=== PATIENT | female | born 1975 | race Caucasian/White ===

== ENCOUNTER 2017-10-21 09:58 | Inpatient (IN) | payer OTHER ==
[~2017-10-21] VITALS: Ht 162.6 cm; Wt 76.0 kg
[2017-10-21 11:04] LABS: Hematocrit 46.1 % (33.0-51.0); Hemoglobin 15.6 g/dL (11.5-16.0); Mean Corpuscular HGB 29.5 pg (26.0-34.0); Mean Corpuscular HGB Conc 33.8 g/dL (31.5-36.5); Mean Corpuscular Volume 87 fL (80-100); Mean Platelet Volume 9.6 fL (9.1-12.4); Platelet Count 278 K/mm3 (150-400); RDW Standard Deviation 41.7 fL (35.1-46.3); Red Blood Cell Count 5.29 M/mm3 (3.80-5.20); White Blood Cell Count 22.65 K/mm3 (4.00-11.30)
[2017-10-21 11:18] LABS: Anion Gap 9 mmol/L (6-16); Blood Urea Nitrogen 13 mg/dL (8-24); Bun/Creatinine Ratio 17.1 (12.0-20.0); CO2, Blood 23 mmol/L (21-32); Chloride, Blood 100 mmol/L (98-108); Creatinine, Blood 0.76 mg/dL (0.40-1.00); Glomerular Filtration Rate >60 (60-); Glucose, Blood 88 mg/dL (70-99); Potassium, Blood 3.8 mmol/L (3.5-5.5); Sodium, Blood 132 mmol/L (136-145)
[2017-10-21 11:37] LABS: BAND PERCENT MAN 15 % (0-8); BASOPHILS PERCENT MAN 0 % (0-2); EOSINOPHILS PERCENT MAN 0 % (0-6); LYMPHOCYTES % ATYPICAL MANUAL 1 % (0-0); LYMPHOCYTES ABSOLUTE MAN 0.67 K/mm3 (0.84-5.20); LYMPHOCYTES PERCENT MAN 2 % (21-46); MONOCYTES PERCENT MAN 4 % (4-13); NEUTROPHILS ABSOLUTE MAN 21.06 K/mm3 (1.96-9.15); SEG NEUTROPHILS PERCENT MAN 78 % (41-73); TOTAL CELLS COUNTED 100
[2017-10-21] MEDS ORDERED: ASPI81CH PO (13:39)
[2017-10-22 04:51] LABS: BASOPHILS PERCENT AUTO 1 % (0-2); Hematocrit 40.7 % (33.0-51.0); Hemoglobin 13.4 g/dL (11.5-16.0); LYMPHOCYTES ABSOLUTE AUTO 0.93 K/mm3 (0.84-5.20); LYMPHOCYTES PERCENT AUTO 5 % (21-46); MONOCYTES ABSOLUTE AUTO 0.49 K/mm3 (0.16-1.47); MONOCYTES PERCENT AUTO 3 % (4-13); Mean Corpuscular HGB 29.1 pg (26.0-34.0); Mean Corpuscular HGB Conc 32.9 g/dL (31.5-36.5); Mean Corpuscular Volume 89 fL (80-100); Mean Platelet Volume 10.2 fL (9.1-12.4); Platelet Count 247 K/mm3 (150-400); RDW Coefficient Variation 13.2 % (11.7-14.2); RDW Standard Deviation 42.9 fL (35.1-46.3); White Blood Cell Count 18.27 K/mm3 (4.00-11.30)
[2017-10-22 04:52] LABS: EOSINOPHILS ABSOLUTE AUTO 0.13 K/mm3 (0.00-0.68); EOSINOPHILS PERCENT AUTO 1 % (0-6); IMMATURE GRAN ABSOLUTE AUTO 0.53 K/mm3 (0.00-0.10); IMMATURE GRAN PERCENT AUTO 3 % (0-1); NEUTROPHILS ABSOLUTE AUTO 16.09 K/mm3 (1.96-9.15); NEUTROPHILS PERCENT AUTO 88 % (41-73)
[2017-10-22 05:09] LABS: Alanine Aminotransfer (ALT/SGP 41 U/L (12-78); Albumin, Blood 2.3 g/dL (3.4-5.0); Albumin/Globulin Ratio 0.6 (0.8-1.8); Alk Phos 119 U/L (50-136); Anion Gap 8 mmol/L (6-16); Aspartate Aminotrans (AST/SGOT 21 U/L (12-37); Bilirubin, Total 0.6 mg/dL (0.1-1.0); Blood Urea Nitrogen 13 mg/dL (8-24); Bun/Creatinine Ratio 18.1 (12.0-20.0); CO2, Blood 25 mmol/L (21-32); Calcium, Blood 8.4 mg/dL (8.5-10.1); Chloride, Blood 106 mmol/L (98-108); Creatinine, Blood 0.72 mg/dL (0.40-1.00); Globulin, Blood 3.9 g/dL (2.2-4.0); Glomerular Filtration Rate >60 (60-); Glucose, Blood 85 mg/dL (70-99); Sodium, Blood 139 mmol/L (136-145); Total Protein, Blood 6.2 g/dL (6.4-8.2)
[2017-10-23 04:25] LABS: BASOPHILS ABSOLUTE AUTO 0.05 K/mm3 (0.00-0.23); BASOPHILS PERCENT AUTO 0 % (0-2); Hematocrit 35.6 % (33.0-51.0); Hemoglobin 11.8 g/dL (11.5-16.0); LYMPHOCYTES ABSOLUTE AUTO 2.05 K/mm3 (0.84-5.20); LYMPHOCYTES PERCENT AUTO 17 % (21-46); MONOCYTES ABSOLUTE AUTO 0.47 K/mm3 (0.16-1.47); MONOCYTES PERCENT AUTO 4 % (4-13); Mean Corpuscular HGB 29.3 pg (26.0-34.0); Mean Corpuscular HGB Conc 33.1 g/dL (31.5-36.5); Mean Corpuscular Volume 88 fL (80-100); Mean Platelet Volume 10.2 fL (9.1-12.4); Platelet Count 287 K/mm3 (150-400); RDW Coefficient Variation 13.2 % (11.7-14.2); RDW Standard Deviation 43.2 fL (35.1-46.3); Red Blood Cell Count 4.03 M/mm3 (3.80-5.20); White Blood Cell Count 11.88 K/mm3 (4.00-11.30)
[2017-10-23 04:28] LABS: EOSINOPHILS ABSOLUTE AUTO 0.48 K/mm3 (0.00-0.68); EOSINOPHILS PERCENT AUTO 4 % (0-6); IMMATURE GRAN ABSOLUTE AUTO 0.07 K/mm3 (0.00-0.10); IMMATURE GRAN PERCENT AUTO 1 % (0-1); NEUTROPHILS ABSOLUTE AUTO 8.76 K/mm3 (1.96-9.15); NEUTROPHILS PERCENT AUTO 74 % (41-73)
[2017-10-23] MEDS ORDERED: AZIT250 PO (10:50)
== END 2017-10-23 13:25 | disposition home or self-care (01) | DRG 871 ==
LOC: ER 09:58 → MEDS 11:47
PROVIDERS: Emergency Medicine; Internal Medicine
DX: A41.9 Sepsis, unspecified organism (principal); J18.9 Pneumonia, unspecified organism; R65.20 Severe sepsis without septic shock; G89.29 Other chronic pain; M54.9 Dorsalgia, unspecified; E86.0 Dehydration; F17.210 Nicotine dependence, cigarettes, uncomplicated
CPT/HCPCS: 36415; 71046; 80048; 80053; 83605; 85025; 87040; 96372; 96374; 96375; 99285; J0456; J0696; J1650; J1885; J7030; J7050; J7120

== ENCOUNTER 2018-09-19 16:44 | Inpatient (IN) | payer OTHER ==
[~2018-09-19] VITALS: Ht 162.6 cm; Wt 70.3 kg
[~2018-09-19 16:44] MED LIST: ASPI81CH PO; AZIT250 PO
[2018-09-19 17:53] LABS: BASOPHILS ABSOLUTE AUTO 0.08 K/mm3 (0.00-0.23); BASOPHILS PERCENT AUTO 1 % (0-2); EOSINOPHILS ABSOLUTE AUTO 0.15 K/mm3 (0.00-0.68); EOSINOPHILS PERCENT AUTO 2 % (0-6); Hematocrit 44.3 % (33.0-51.0); Hemoglobin 14.5 g/dL (11.5-16.0); IMMATURE GRAN ABSOLUTE AUTO 0.05 K/mm3 (0.00-0.10); IMMATURE GRAN PERCENT AUTO 1 % (0-1); LYMPHOCYTES ABSOLUTE AUTO 1.55 K/mm3 (0.84-5.20); LYMPHOCYTES PERCENT AUTO 16 % (21-46); MONOCYTES ABSOLUTE AUTO 0.71 K/mm3 (0.16-1.47); MONOCYTES PERCENT AUTO 7 % (4-13); Mean Corpuscular HGB 29.8 pg (26.0-34.0); Mean Corpuscular HGB Conc 32.7 g/dL (31.5-36.5); Mean Corpuscular Volume 91 fL (80-100); Mean Platelet Volume 9.5 fL (9.1-12.4); NEUTROPHILS PERCENT AUTO 75 % (41-73); Platelet Count 331 K/mm3 (150-400); RDW Coefficient Variation 13.2 % (11.7-14.2); RDW Standard Deviation 44.6 fL (35.1-46.3); Red Blood Cell Count 4.86 M/mm3 (3.80-5.20); White Blood Cell Count 9.94 K/mm3 (4.00-11.30)
[2018-09-19 18:37] LABS: Anion Gap 5 mmol/L (6-16); Blood Urea Nitrogen 10 mg/dL (8-24); Bun/Creatinine Ratio 18.1 (12.0-20.0); CO2, Blood 27 mmol/L (21-32); Calcium, Blood 8.7 mg/dL (8.5-10.1); Chloride, Blood 105 mmol/L (98-108); Creatinine, Blood 0.55 mg/dL (0.40-1.00); Glomerular Filtration Rate >60 (60-); Glucose, Blood 99 mg/dL (70-99); Potassium, Blood 3.8 mmol/L (3.5-5.5); Sodium, Blood 137 mmol/L (136-145)
[2018-09-19] MEDS ORDERED: LISI20 PO (21:43)
--- NOTE | 2018-09-19 22:12 | NUR ---
PATIENT IS A NEW ADMIT FROM THE ED. ARRIVED VIA W/C AND A SBA TRANSFER TO BED. AXO X 4 ON RA. WAITING ON LAB TO DRAW BLOOD CULTURES BEFORE STARTING IV ABX. PATIENT ORIENTED TO ROOM AND CALL LIGHT SYSTEM. RESTING IN BED AND GIVEN WARM BLANKET.
--- NOTE | 2018-09-19 23:33 | NUR ---
LAB REPORTS SECOND BLOOD CULTURE LAB DRAWN. IV ABX INFUSING FOLLOWED BY LR AT 150mL/HR. PATIENT REPORTS LEFT LEG KNEE AND INSIDE LEG PAIN. IV TORADOL 15 MG WILL BE GIVEN PER EMAR. CALL LIGHT IN REACH. WILL CONTINUE TO MONITOR.
--- NOTE | 2018-09-20 02:42 | NUR ---
IV ABX INFUSING. PATIENT REPORTED REDUCED PAIN AFTER IV TORADOL GIVEN PER EMAR. PATIENT RESTING. CALL LIGHT IN REACH. WILL CONTINUE TO MONITOR.
--- NOTE | 2018-09-20 04:49 | NUR ---
SHIFT SUMMARY PATIENT IS A NEW ADMIT FROM THE ED. PATIENT HAD NO ACUTE CHANGES OBSERVED. AXOX 4 AND INDEPENDENT IN THE ROOM. PATIENT REPORTS NOT TAKING HER LISINOPRIL 20 MG FOR OVER A WEEK. BP WAS 171/96 ON ADMIT AND NOW 152/86. HOSPITALIST DR TYSON NOTIFIED AND ORDERED APRESOLINE IV 10 MG PRN. PIV REMAINS INTACT. IV ABX INFUSED. LR INFUSING AT 150mL/HR. REPORTED LL LEG PAIN AND RECEIVED IV TORADOL 15 MG PER EMAR. SCHOOL BUS DRIVER/TEACHER ASSISTANT REPORTS ST 101. DENIES SOB AND N/V. COOPERATIVE WITH CARE. CALL LIGHT IN REACH. BED IN LOWEST POSITION. WILL CONTINUE TO MONITOR UNTIL DAY SHIFT NURSE ASSUMES CARE.
[2018-09-20 06:35] LABS: U Amphetamine Screen DETECTED; U Barbituate Screen Not Detected; U Benzodiazapine Screen Not Detected; U Buprenorphine Screen Not Detected; U Cannabinoids Screen Not Detected; U Cocaine Screen Not Detected; U Methadone Screen Not Detected; U Methamphetamine Screen DETECTED; U Opiates Screen DETECTED; U Oxycodone Screen Not Detected; U Phencyclidine Screen Not Detected; U Propoxyphene Screen Not Detected
--- NOTE | 2018-09-20 06:51 | NUR ---
URINE SAMPLE SENT TO LAB
--- NOTE | 2018-09-20 12:08 | NUR ---
SHE HAS HAD TORADOL AND LATER TYLENOL FOR PAIN IN HER L LEG. IT IS RED AND SWOLLEN. NO DRAINAGE NOTED. SHE WILL SHOWER TODAY. IVF'S INFUSING. NO OTHER COMPLAINTS.
--- NOTE | 2018-09-20 14:47 | NUR ---
RECEIVED A SECOND DOSE OF TORADOL THIS SHIFT FOR THE PAIN IN HER L LEG.
--- NOTE | 2018-09-20 18:02 | NUR ---
SHE WANTS TO CONTINUE TO NAP BEFORE EATING DINNER. SHE HAS RECEIVED TYLENOL X2 THIS SHIFT, THIS LAST TIME FOR A MILD H/A. SHE WAS PRIVATELY TEARFUL THIS AFTERNOON MISSING HER DAUGHTER AT HOME. TORADOL WAS ALSO GIVEN TWICE TODAY FOR HER L LEG PAIN. HER PSORIASIS CREAM WILL START TONIGHT.
--- NOTE | 2018-09-21 05:04 | NUR ---
SHIFT SUMMARY: PT RESTED IN BED ALL EVENING WITH LEFT LEG ELEVATED ON ONE PILLOW. PT RATED LEFT LEG PAIN 7/10 WITH TORADOL PRN GIVEN PROVIDING ADEQUATE PAIN RELIEF. PT DENIES NAUSEA/VOMITING. PT CALM, COOPERATIVE WITH ORGANIZED THOUGHT PROCESS NOTED. PTS CALL LIGHT AT SIDE, BED LOW POSITION.
[2018-09-21] MEDS ORDERED: Triamcinolone A15 G3 TOP (10:54)
[2018-09-21] MEDS ORDERED: CEPH500 PO (10:55)
--- NOTE | 2018-09-21 11:20 | NUR ---
TYLENOL GIVEN X1 FOR MILD H/A AND PAIN IN HER L LEG. SHE EATS AND DRINKS WELL. SHE VOIDS WELL. NO NEW COMPLAINTS. SHE SAYS SHE FEELS BETTER TODAY AND WANTED TO GO HOME. DISCHARGED TO HOME AT 1114 WITH BELONGINGS AND INSTRUCTIONS.
== END 2018-09-21 11:22 | disposition home or self-care (01) | DRG 603 ==
LOC: ER 16:44 → MEDS 21:22 → ENPENDDIS 09-21 11:16 → MEDS 09-21 11:22
PROVIDERS: Physician Assistant; ADMIT Internal Medicine
DX: L03.116 Cellulitis of left lower limb (principal); R65.10 Systemic inflammatory response syndrome (SIRS) of non-infectious origin without acute organ dysfunction; Z87.01 Personal history of pneumonia (recurrent); F17.210 Nicotine dependence, cigarettes, uncomplicated; Z79.82 Long term (current) use of aspirin; I10 Essential (primary) hypertension; L40.9 Psoriasis, unspecified; M54.9 Dorsalgia, unspecified; G89.29 Other chronic pain
CPT/HCPCS: 36415; 80048; 83605; 85025; 85651; 86141; 87040; 96374; 96375; 99284-25; J0690; J1170; J1650; J1885; J7050; J7120

== ENCOUNTER 2019-06-08 15:54 | Inpatient (IN) | payer OTHER ==
[~2019-06-08] VITALS: Ht 154.9 cm; Wt 74.0 kg
[~2019-06-08 15:54] MED LIST changes: +CEPH500 PO; +LISI20 PO; +Triamcinolone A15 G3 TOP
[2019-06-08 16:38] LABS: BASOPHILS ABSOLUTE AUTO 0.04 K/mm3 (0.00-0.23); BASOPHILS PERCENT AUTO 0 % (0-2); EOSINOPHILS ABSOLUTE AUTO 0.13 K/mm3 (0.00-0.68); EOSINOPHILS PERCENT AUTO 1 % (0-6); Hematocrit 42.2 % (33.0-51.0); Hemoglobin 14.1 g/dL (11.5-16.0); IMMATURE GRAN ABSOLUTE AUTO 0.04 K/mm3 (0.00-0.10); IMMATURE GRAN PERCENT AUTO 0 % (0-1); LYMPHOCYTES ABSOLUTE AUTO 1.62 K/mm3 (0.84-5.20); LYMPHOCYTES PERCENT AUTO 14 % (21-46); MONOCYTES ABSOLUTE AUTO 1.09 K/mm3 (0.16-1.47); MONOCYTES PERCENT AUTO 10 % (4-13); Mean Corpuscular HGB 29.6 pg (26.0-34.0); Mean Corpuscular HGB Conc 33.4 g/dL (31.5-36.5); Mean Corpuscular Volume 89 fL (80-100); Mean Platelet Volume 9.3 fL (9.1-12.4); NEUTROPHILS ABSOLUTE AUTO 8.53 K/mm3 (1.96-9.15); NEUTROPHILS PERCENT AUTO 75 % (41-73); Platelet Count 409 K/mm3 (150-400); RDW Standard Deviation 42.5 fL (35.1-46.3); Red Blood Cell Count 4.77 M/mm3 (3.80-5.20); White Blood Cell Count 11.45 K/mm3 (4.00-11.30)
[2019-06-08 17:09] LABS: Alanine Aminotransfer (ALT/SGP 26 U/L (12-78); Albumin/Globulin Ratio 0.7 (0.8-1.8); Alk Phos 117 U/L (50-136); Anion Gap 7 mmol/L (6-16); Aspartate Aminotrans (AST/SGOT 18 U/L (12-37); Bilirubin, Total 0.2 mg/dL (0.1-1.0); Blood Urea Nitrogen 15 mg/dL (8-24); Bun/Creatinine Ratio 23.9 (12.0-20.0); CO2, Blood 25 mmol/L (21-32); Calcium, Blood 8.8 mg/dL (8.5-10.1); Chloride, Blood 102 mmol/L (98-108); Creatinine, Blood 0.63 mg/dL (0.40-1.00); Globulin, Blood 4.3 g/dL (2.2-4.0); Glomerular Filtration Rate >60 (60-); Glucose, Blood 137 mg/dL (70-99); Sodium, Blood 134 mmol/L (136-145); Total Protein, Blood 7.3 g/dL (6.4-8.2)
[2019-06-09 04:49] LABS: BASOPHILS ABSOLUTE AUTO 0.05 K/mm3 (0.00-0.23); BASOPHILS PERCENT AUTO 1 % (0-2); EOSINOPHILS ABSOLUTE AUTO 0.27 K/mm3 (0.00-0.68); EOSINOPHILS PERCENT AUTO 3 % (0-6); Hematocrit 40.2 % (33.0-51.0); Hemoglobin 13.3 g/dL (11.5-16.0); IMMATURE GRAN ABSOLUTE AUTO 0.03 K/mm3 (0.00-0.10); IMMATURE GRAN PERCENT AUTO 0 % (0-1); LYMPHOCYTES ABSOLUTE AUTO 1.66 K/mm3 (0.84-5.20); LYMPHOCYTES PERCENT AUTO 17 % (21-46); MONOCYTES ABSOLUTE AUTO 0.96 K/mm3 (0.16-1.47); MONOCYTES PERCENT AUTO 10 % (4-13); Mean Corpuscular HGB 29.4 pg (26.0-34.0); Mean Corpuscular HGB Conc 33.1 g/dL (31.5-36.5); Mean Corpuscular Volume 89 fL (80-100); Mean Platelet Volume 9.5 fL (9.1-12.4); NEUTROPHILS ABSOLUTE AUTO 6.59 K/mm3 (1.96-9.15); NEUTROPHILS PERCENT AUTO 69 % (41-73); Platelet Count 384 K/mm3 (150-400); RDW Coefficient Variation 13.1 % (11.7-14.2); RDW Standard Deviation 42.6 fL (35.1-46.3); Red Blood Cell Count 4.53 M/mm3 (3.80-5.20); White Blood Cell Count 9.56 K/mm3 (4.00-11.30)
[2019-06-09 05:10] LABS: Anion Gap 7 mmol/L (6-16); Blood Urea Nitrogen 14 mg/dL (8-24); Bun/Creatinine Ratio 23.8 (12.0-20.0); CO2, Blood 26 mmol/L (21-32); Calcium, Blood 8.3 mg/dL (8.5-10.1); Chloride, Blood 106 mmol/L (98-108); Creatinine, Blood 0.59 mg/dL (0.40-1.00); Glomerular Filtration Rate >60 (60-); Glucose, Blood 100 mg/dL (70-99); Potassium, Blood 3.2 mmol/L (3.5-5.5); Sodium, Blood 139 mmol/L (136-145)
--- NOTE | 2019-06-09 05:15 | NUR ---
CABLE ARMORER OPERATOR SUMMARY PT NEW ADMIT FROM ER. ON DROPLET PRECAUTION. A/O. PT WAS ANXIOUS AND TEARFUL THROUGHOUT MAJORITY OF THE SHIFT OFF AND ON DUE TO PAIN IN LEGS FROM CELLULITIS. TYLENOL AND TRAMADOL GIVEN PER EMAR WHICH DID NOT REDUCE THE PAIN. DILAUDID HELPED THE MOST AND PT SLEPT THROUGHOUT THE NIGHT AFTER THIS WAS GIVEN. S/O STAYED IN THE ROOM WITH PT ENTIRE NIGHT. CALLS APPROPRIATELY.
--- NOTE | 2019-06-09 17:21 | NUR ---
NO ACUTE CHANGES, MEDICATED X2 FOR PAIN AND PARTIAL BED BATH GIVEN TO CLEAN FEET.
[2019-06-10 05:04] LABS: BASOPHILS ABSOLUTE AUTO 0.07 K/mm3 (0.00-0.23); BASOPHILS PERCENT AUTO 1 % (0-2); EOSINOPHILS ABSOLUTE AUTO 0.37 K/mm3 (0.00-0.68); EOSINOPHILS PERCENT AUTO 4 % (0-6); Hematocrit 41.2 % (33.0-51.0); Hemoglobin 13.5 g/dL (11.5-16.0); IMMATURE GRAN ABSOLUTE AUTO 0.03 K/mm3 (0.00-0.10); IMMATURE GRAN PERCENT AUTO 0 % (0-1); LYMPHOCYTES ABSOLUTE AUTO 1.86 K/mm3 (0.84-5.20); LYMPHOCYTES PERCENT AUTO 21 % (21-46); MONOCYTES ABSOLUTE AUTO 0.66 K/mm3 (0.16-1.47); MONOCYTES PERCENT AUTO 8 % (4-13); Mean Corpuscular HGB 29.4 pg (26.0-34.0); Mean Corpuscular HGB Conc 32.8 g/dL (31.5-36.5); Mean Corpuscular Volume 90 fL (80-100); Mean Platelet Volume 9.6 fL (9.1-12.4); NEUTROPHILS ABSOLUTE AUTO 5.72 K/mm3 (1.96-9.15); NEUTROPHILS PERCENT AUTO 66 % (41-73); Platelet Count 418 K/mm3 (150-400); RDW Coefficient Variation 13.2 % (11.7-14.2); RDW Standard Deviation 43.6 fL (35.1-46.3); Red Blood Cell Count 4.59 M/mm3 (3.80-5.20); White Blood Cell Count 8.71 K/mm3 (4.00-11.30)
[2019-06-10 05:28] LABS: Alanine Aminotransfer (ALT/SGP 12 U/L (12-78); Albumin, Blood 2.6 g/dL (3.4-5.0); Albumin/Globulin Ratio 0.6 (0.8-1.8); Alk Phos 106 U/L (50-136); Anion Gap 8 mmol/L (6-16); Aspartate Aminotrans (AST/SGOT 18 U/L (12-37); Bilirubin, Total 0.2 mg/dL (0.1-1.0); Blood Urea Nitrogen 9 mg/dL (8-24); Bun/Creatinine Ratio 16.3 (12.0-20.0); CO2, Blood 23 mmol/L (21-32); Calcium, Blood 8.3 mg/dL (8.5-10.1); Chloride, Blood 108 mmol/L (98-108); Creatinine, Blood 0.55 mg/dL (0.40-1.00); Globulin, Blood 4.1 g/dL (2.2-4.0); Glomerular Filtration Rate >60 (60-); Glucose, Blood 95 mg/dL (70-99); Potassium, Blood 3.8 mmol/L (3.5-5.5); Sodium, Blood 139 mmol/L (136-145); Total Protein, Blood 6.7 g/dL (6.4-8.2)
--- NOTE | 2019-06-10 05:32 | NUR ---
PT SLEPT ALL NIGHT. COMPLAINED OF PAIN A FEW TIMES. MEDICATED PER EMAR FOR PAIN. ANTIBIOTICS GIVEN. PT BLOOD PRESSURE 167/90 EARLY IN THE AM. PT WAS ASKED ABOUT PAIN WHICH WAS A 4/10 AND WAS TOLERABLE. HYDRALAZINE GIVEN PER EMAR WITH PARAMETERS TO GIVE WITH A SYSTOLIC BP ABOVE 150. PT ASYMPTOMATIC. BP RE-ASSESSED AFTER HYDRALAZINE WAS GIVEN. BP CAME DOWN TO 157/89. PT ALSO HAS SCHEDULED METOPROLOL AT 0900. WILL CONTINUE TO MONITOR.
--- NOTE | 2019-06-10 18:19 | NUR ---
SHIFT SUMMARY PT SLEPT A LOT OF THE MORNING AND DIDN'T EAT BREAKFAST DUE TO SLEEPING. PT TOOK A SHOWER THIS AFTERNOON AND SCRUBBED HER FEET IN THE SHOWER, WHICH CAUSED HER TO HAVE A LOT OF PAIN IN HER FEET AND LEGS. PT WAS YELLING AND CRYING. TRAMADOL WAS ADMINISTERED PER EMAR AND PT DID NOT HAVE ANY RELIEF FROM IT. THIS RN TALKED WITH DR. CUEVA ABOUT THE PAIN AND SHE ORDERED TORADOL. TORADOL WAS GIVEN PER EMAR AND PT SLEPT AFTER. PT SLEEPING AT THIS TIME. WILL CONTINUE TO MONITOR FOR COMFORT. CALL LIGHT IN REACH. WILL REPORT TO NOC RN.
--- NOTE | 2019-06-10 20:12 | NUR ---
BP IMPROVED TO 158/97 AFTER RECIEVING HYDRALAZINE IV PRN ON DAY SHIFT AT 1637. NOT TIME YET FOR ANY ADDITIONAL PRN MED FOR SBP >150 BUT WILL REEVALUATE BP FOR NEED THIS SHIFT. NO S/S CARDIAC DISTRESS.
[2019-06-11 00:19] LABS: BASOPHILS ABSOLUTE AUTO 0.07 K/mm3 (0.00-0.23); BASOPHILS PERCENT AUTO 1 % (0-2); EOSINOPHILS ABSOLUTE AUTO 0.47 K/mm3 (0.00-0.68); EOSINOPHILS PERCENT AUTO 7 % (0-6); Hematocrit 42.9 % (33.0-51.0); IMMATURE GRAN ABSOLUTE AUTO 0.03 K/mm3 (0.00-0.10); IMMATURE GRAN PERCENT AUTO 1 % (0-1); LYMPHOCYTES ABSOLUTE AUTO 2.06 K/mm3 (0.84-5.20); LYMPHOCYTES PERCENT AUTO 31 % (21-46); MONOCYTES ABSOLUTE AUTO 0.62 K/mm3 (0.16-1.47); MONOCYTES PERCENT AUTO 9 % (4-13); Mean Corpuscular HGB 29.5 pg (26.0-34.0); Mean Corpuscular HGB Conc 32.6 g/dL (31.5-36.5); Mean Corpuscular Volume 90 fL (80-100); NEUTROPHILS ABSOLUTE AUTO 3.33 K/mm3 (1.96-9.15); NEUTROPHILS PERCENT AUTO 51 % (41-73); Platelet Count 416 K/mm3 (150-400); RDW Coefficient Variation 13.1 % (11.7-14.2); RDW Standard Deviation 43.8 fL (35.1-46.3); Red Blood Cell Count 4.75 M/mm3 (3.80-5.20); White Blood Cell Count 6.58 K/mm3 (4.00-11.30)
[2019-06-11 00:34] LABS: Albumin, Blood 2.7 g/dL (3.4-5.0); Anion Gap 6 mmol/L (6-16); Blood Urea Nitrogen 9 mg/dL (8-24); Bun/Creatinine Ratio 13.4 (12.0-20.0); CO2, Blood 27 mmol/L (21-32); Calcium, Blood 8.8 mg/dL (8.5-10.1); Chloride, Blood 107 mmol/L (98-108); Creatinine, Blood 0.67 mg/dL (0.40-1.00); Glomerular Filtration Rate >60 (60-); Glucose, Blood 112 mg/dL (70-99); Phosphorus, Blood 3.3 mg/dL (2.5-4.9); Potassium, Blood 3.9 mmol/L (3.5-5.5); Sodium, Blood 140 mmol/L (136-145)
[2019-06-11 00:38] LABS: Vancomycin, Trough 6.7 ug/mL (5.0-10.0)
--- NOTE | 2019-06-11 04:50 | NUR ---
PRN IV HYDRALAZINE GIVEN FOR SBP>150 PER PARAMETERS, AWAITING EFFECT.
--- NOTE | 2019-06-11 05:54 | NUR ---
SUMMARY: PT A/O AND SPECIFIES NEEDS BUT SLEPT MAJORITY OF SHIFT AND AWOKE BRIEFLY FOR MEDS AND TO USE TOILET INDEPENDENTLY. SHE STATES BLE LEG PAIN WAS BETTER THIS SHIFT BUT STILL REQUIRED TRAMADOL AND IV TORADOL PRN FOR TOLERABLE CONTROL. DERMATOLOGY CX NEEDS CALLED TUESDAY FOR LICHEN PLANUS W/INFECTION TO BLE'S. THEY REMAIN WARM, PINK, SWOLLEN AND W/SCABS AND OPEN SORES T/O. IV ABX RECEIVED. HER BP REMAINS ELEVATED BUT BETTER THEN PREVIOUS SHIFTS. SHE REQUIRED HYDRALAZINE IV PRN X1 THIS AM FOR BP 171/92, NOW IMPROVED TO 141/79. NO ACUTE CHANGES, VSS/AFEBRILE. BROTHER STAYS THE NIGHT. WCAHSAN AND REPORT TO DAY RN.
[2019-06-11] MEDS ORDERED: Vsl#3 Capsule1 EACH PO (15:13)
[2019-06-11] MEDS ORDERED: METO25ER PO (15:13)
[2019-06-11] MEDS ORDERED: TRAM50 PO (15:13)
[2019-06-11] MEDS ORDERED: Augmentin 875-1 EACH PO (15:14)
--- NOTE | 2019-06-11 18:18 | NUR ---
REVIEW D'C INSTRUCTIONS. AWARE TO DIRECTOR AUTO RX'S AT [facility]. AWARE HAS APPT W/PCP AND PCP HAS NEW ADDRESS. AWARE DERMATOLOGY WILL CALL HER WITH APPT. GIVEN EXTRA 4 X4 THAT WERE IN ROOM AND SHURCLENS. AWAITING W/C TO RIDE.
== END 2019-06-11 18:28 | disposition home or self-care (01) | DRG 603 ==
LOC: ER 15:54 → MEDS 19:35
PROVIDERS: Internal Medicine; Physician Assistant; ADMIT Family Medicine
DX: L03.115 Cellulitis of right lower limb (principal); E87.1 Hypo-osmolality and hyponatremia; L03.116 Cellulitis of left lower limb; E87.6 Hypokalemia; R73.9 Hyperglycemia, unspecified; I10 Essential (primary) hypertension; B95.61 Methicillin susceptible Staphylococcus aureus infection as the cause of diseases classified elsewhere; B95.0 Streptococcus, group A, as the cause of diseases classified elsewhere; F17.210 Nicotine dependence, cigarettes, uncomplicated; D47.3 Essential (hemorrhagic) thrombocythemia; F15.10 Other stimulant abuse, uncomplicated; L43.0 Hypertrophic lichen planus
CPT/HCPCS: 36415; 80048; 80053; 80069; 80202; 83036; 85025; 87070; 87075; 87077; 87147; 87186; 87205; 96374; 99284-25; A9270; J0360; J0690; J1170; J1650; J1885; J3370; J7050

== ENCOUNTER 2020-02-19 18:16 | Emergency (ER) | payer OTHER ==
[~2020-02-19] VITALS: Ht 162.6 cm; Wt 77.1 kg
[~2020-02-19 18:16] MED LIST changes: +Augmentin 875-1 EACH PO; +METO25ER PO; +TRAM50 PO; +Vsl#3 Capsule1 EACH PO
[2020-02-19 19:44] LABS: Source, Urine Voided
[2020-02-19 19:49] LABS: BASOPHILS ABSOLUTE AUTO 0.05 K/mm3 (0.00-0.23); BASOPHILS PERCENT AUTO 0 % (0-2); EOSINOPHILS ABSOLUTE AUTO 0.25 K/mm3 (0.00-0.68); EOSINOPHILS PERCENT AUTO 2 % (0-6); Hematocrit 45.9 % (33.0-51.0); Hemoglobin 15.3 g/dL (11.5-16.0); IMMATURE GRAN ABSOLUTE AUTO 0.08 K/mm3 (0.00-0.10); IMMATURE GRAN PERCENT AUTO 1 % (0-1); LYMPHOCYTES PERCENT AUTO 8 % (21-46); MONOCYTES ABSOLUTE AUTO 1.11 K/mm3 (0.16-1.47); MONOCYTES PERCENT AUTO 8 % (4-13); Mean Corpuscular HGB 28.6 pg (26.0-34.0); Mean Corpuscular HGB Conc 33.3 g/dL (31.5-36.5); Mean Corpuscular Volume 86 fL (80-100); Mean Platelet Volume 10.3 fL (9.1-12.4); NEUTROPHILS ABSOLUTE AUTO 11.84 K/mm3 (1.96-9.15); NEUTROPHILS PERCENT AUTO 82 % (41-73); Platelet Count 281 K/mm3 (150-400); RDW Coefficient Variation 13.2 % (11.7-14.2); RDW Standard Deviation 41.1 fL (35.1-46.3); Red Blood Cell Count 5.35 M/mm3 (3.80-5.20); White Blood Cell Count 14.53 K/mm3 (4.00-11.30)
[2020-02-19 19:50] LABS: Bilirubin, Urine Neg (Neg); Blood, Urine 4+ (Neg); Glucose Qualitative, Urine Neg (Neg); Ketones, Urine Neg (Neg); Leukocyte Esterase, Urine 2+ (Neg); Nitrite, Urine Neg (Neg); Protein, Urine 2+ (Neg); Specific Gravity, Urine 1.015 (1.003-1.022); Urobilinogen, Urine 2+ (Normal)
[2020-02-19 20:01] LABS: Appearance, Urine Clear (Clear); Color, Urine Yellow (P-Yellow)
[2020-02-19 20:02] LABS: Bacteria Mod /hpf; Hyaline Casts 0-2 /lpf (0-2); Red Blood Cells, Urine 0-2 /hpf (0-2); Squamous Epithelial Cells Few /hpf (Few); Trichomonas Few /hpf
[2020-02-19 20:29] LABS: Anion Gap 11 mmol/L (6-16); Beta HCG, Quantitative, Serum <1 mIU/mL (0-3); Blood Urea Nitrogen 19 mg/dL (8-24); Bun/Creatinine Ratio 23.3 (12.0-20.0); CO2, Blood 22 mmol/L (21-32); Calcium, Blood 8.5 mg/dL (8.5-10.1); Chloride, Blood 100 mmol/L (98-108); Creatinine, Blood 0.81 mg/dL (0.40-1.00); Glomerular Filtration Rate >60 (60-); Glucose, Blood 109 mg/dL (70-99); Potassium, Blood 3.4 mmol/L (3.5-5.5); Sodium, Blood 133 mmol/L (136-145)
[2020-02-19] MEDS ORDERED: HYDR1TAB94 PO (21:39)
[2020-02-19] MEDS ORDERED: ONDA4ODT SL (21:39)
[2020-02-19] MEDS ORDERED: CEFD300 PO (21:39)
== END 2020-02-19 22:07 | disposition home or self-care (01) ==
LOC: ER 18:16
PROVIDERS: Emergency Medicine
DX: R10.9 Unspecified abdominal pain (principal); I10 Essential (primary) hypertension; Z79.899 Other long term (current) drug therapy; F17.210 Nicotine dependence, cigarettes, uncomplicated
CPT/HCPCS: 36415; 80048; 81001; 84702; 85025; 87086; 96365; 96375; 99284-25; J0696; J1885

== ENCOUNTER 2020-03-01 10:41 | Inpatient (IN) | payer OTHER ==
[~2020-03-01] VITALS: Ht 162.6 cm; Wt 79.5 kg
[~2020-03-01 10:41] MED LIST changes: +CEFD300 PO; +HYDR1TAB94 PO; +ONDA4ODT SL
[2020-03-01 11:35] LABS: BASOPHILS PERCENT AUTO 1 % (0-2); EOSINOPHILS ABSOLUTE AUTO 0.22 K/mm3 (0.00-0.68); EOSINOPHILS PERCENT AUTO 1 % (0-6); Hematocrit 42.2 % (33.0-51.0); Hemoglobin 13.4 g/dL (11.5-16.0); IMMATURE GRAN ABSOLUTE AUTO 0.09 K/mm3 (0.00-0.10); IMMATURE GRAN PERCENT AUTO 1 % (0-1); LYMPHOCYTES ABSOLUTE AUTO 1.72 K/mm3 (0.84-5.20); LYMPHOCYTES PERCENT AUTO 11 % (21-46); MONOCYTES ABSOLUTE AUTO 0.91 K/mm3 (0.16-1.47); MONOCYTES PERCENT AUTO 6 % (4-13); Mean Corpuscular HGB 28.2 pg (26.0-34.0); Mean Corpuscular HGB Conc 31.8 g/dL (31.5-36.5); Mean Corpuscular Volume 89 fL (80-100); Mean Platelet Volume 9.2 fL (9.1-12.4); NEUTROPHILS ABSOLUTE AUTO 13.27 K/mm3 (1.96-9.15); NEUTROPHILS PERCENT AUTO 81 % (41-73); Platelet Count 673 K/mm3 (150-400); RDW Coefficient Variation 13.6 % (11.7-14.2); RDW Standard Deviation 44.5 fL (35.1-46.3); Red Blood Cell Count 4.75 M/mm3 (3.80-5.20); White Blood Cell Count 16.31 K/mm3 (4.00-11.30)
[2020-03-01 11:53] LABS: Alanine Aminotransfer (ALT/SGP 47 U/L (12-78); Albumin, Blood 2.5 g/dL (3.4-5.0); Albumin/Globulin Ratio 0.5 (0.8-1.8); Alk Phos 176 U/L (50-136); Anion Gap 9 mmol/L (6-16); Aspartate Aminotrans (AST/SGOT 31 U/L (12-37); Bilirubin, Total 0.3 mg/dL (0.1-1.0); Blood Urea Nitrogen 7 mg/dL (8-24); Bun/Creatinine Ratio 15.1 (12.0-20.0); CO2, Blood 22 mmol/L (21-32); Calcium, Blood 8.9 mg/dL (8.5-10.1); Chloride, Blood 103 mmol/L (98-108); Creatinine, Blood 0.47 mg/dL (0.40-1.00); Globulin, Blood 5.3 g/dL (2.2-4.0); Glomerular Filtration Rate >60 (60-); Glucose, Blood 139 mg/dL (70-99); Potassium, Blood 3.4 mmol/L (3.5-5.5); Sodium, Blood 134 mmol/L (136-145); Total Protein, Blood 7.8 g/dL (6.4-8.2)
[2020-03-01 12:21] LABS: Source, Urine Clean Catch
[2020-03-01 12:24] LABS: Appearance, Urine Hazy (Clear); Bilirubin, Urine Neg (Neg); Blood, Urine 1+ (Neg); Color, Urine Yellow (P-Yellow); Glucose Qualitative, Urine Neg (Neg); Ketones, Urine 1+ (Neg); Leukocyte Esterase, Urine 2+ (Neg); Nitrite, Urine Neg (Neg); Protein, Urine 2+ (Neg); Urobilinogen, Urine 2+ (Normal)
[2020-03-01 12:44] LABS: Bacteria Mod /hpf; Red Blood Cells, Urine 0-2 /hpf (0-2); Squamous Epithelial Cells Mod /hpf (Few)
[2020-03-01 12:45] LABS: Calcium Oxalate Crystals Many /hpf; Mucus Light (0-Heavy); Trichomonas Many /hpf
[2020-03-01 17:22] LABS: International Normalized Ratio 1.07; Prothrombin Time Results 11.4 Sec (9.7-11.5)
--- NOTE | 2020-03-01 17:50 | NUR ---
pt arrived to unit via stretcher, transferred herself to bed, a/o x 4, vss, pleasant/cooperative, pt's father in room with pt, pt voided 650 ml dark yellow urine, tolerated po intake, will remain NPO after midnight
[2020-03-02 04:01] LABS: BASOPHILS ABSOLUTE AUTO 0.07 K/mm3 (0.00-0.23); BASOPHILS PERCENT AUTO 1 % (0-2); EOSINOPHILS ABSOLUTE AUTO 0.17 K/mm3 (0.00-0.68); EOSINOPHILS PERCENT AUTO 1 % (0-6); Hematocrit 37.8 % (33.0-51.0); IMMATURE GRAN ABSOLUTE AUTO 0.09 K/mm3 (0.00-0.10); IMMATURE GRAN PERCENT AUTO 1 % (0-1); LYMPHOCYTES PERCENT AUTO 19 % (21-46); MONOCYTES ABSOLUTE AUTO 1.04 K/mm3 (0.16-1.47); MONOCYTES PERCENT AUTO 8 % (4-13); Mean Corpuscular HGB 27.9 pg (26.0-34.0); Mean Corpuscular HGB Conc 31.7 g/dL (31.5-36.5); Mean Corpuscular Volume 88 fL (80-100); Mean Platelet Volume 9.1 fL (9.1-12.4); NEUTROPHILS ABSOLUTE AUTO 9.06 K/mm3 (1.96-9.15); NEUTROPHILS PERCENT AUTO 71 % (41-73); Platelet Count 661 K/mm3 (150-400); RDW Coefficient Variation 13.8 % (11.7-14.2); RDW Standard Deviation 44.3 fL (35.1-46.3); White Blood Cell Count 12.83 K/mm3 (4.00-11.30)
[2020-03-02 04:30] LABS: Anion Gap 4 mmol/L (6-16); Blood Urea Nitrogen 5 mg/dL (8-24); Bun/Creatinine Ratio 9.3 (12.0-20.0); CO2, Blood 29 mmol/L (21-32); Calcium, Blood 8.4 mg/dL (8.5-10.1); Chloride, Blood 103 mmol/L (98-108); Creatinine, Blood 0.54 mg/dL (0.40-1.00); Glomerular Filtration Rate >60 (60-); Glucose, Blood 99 mg/dL (70-99); Potassium, Blood 3.8 mmol/L (3.5-5.5); Sodium, Blood 136 mmol/L (136-145)
--- NOTE | 2020-03-02 13:02 | NUR ---
PT TO PROCEDURE AT THIS TIME.
--- NOTE | 2020-03-02 14:51 | NUR ---
S/P PROCEDURE S/P URECIL DRAIN PLACEMENT TO RLQ. DRESSING CDI AND PURULENT DRAINAGE PRESENT IN BAG. PT REPORTS "PAIN FEELS BETTER NOW". PT ABLE TO STAND AND GET INTO BED FROM [facility] WITH MIN ASSIST. OFFERED REG DIET. DAD AT BEDSIDE FOR SUPPORT. CALL LIGHT WITHIN REACH.
--- NOTE | 2020-03-02 16:48 | NUR ---
SHIFT SUMMARY CT GUIDED DRAIN PLACEMENT TODAY TO RLQ. SCANT PURULENT DRAINAGE NOTED IN BAG. 1 NORCO + 0.5MG IV DILAUDID FOR PAIN PRN. GLORIA REG DIET. 1 MIN ASSIST TO BRP. IV ABX PER ORDERS. PT OCCASSIONALLY HAS IRRITABLE OUTBURSTS TOWARDS FATHER IN ROOM. FATHER COOPERATIVE WITH LEAVING PRN. PT USES CALL LIGHT APPROPRIATELY.
--- NOTE | 2020-03-03 09:07 | NUR ---
CAP AND STUD MACHINE OPERATOR REPORTS PT IS GETTING ANXIOUS IN ROOM, WANTS TO GO OUTSIDE TO SMOKE, PT WAS NOTED YELLING AT HER FATHER IN THE ROOM, WENT OUTSIDE IN A W/C TO SMOKE WITH HER FATHER, UNABLE TO DO PT'S ASSESSMENT AT THIS TIME.
--- NOTE | 2020-03-03 19:22 | NUR ---
MEDICATED FOR PAIN X2 TODAY, GOES OUT FREQUENTLY TO SMOKE, DENIES ANY NAUSEA, DRAIN INTACT, REFUSED SHOWER TODAY, TOLERATING DIET WELL, NO ACUTE CHANGES THIS SHIFT.
[2020-03-04 05:12] LABS: BASOPHILS ABSOLUTE AUTO 0.07 K/mm3 (0.00-0.23); BASOPHILS PERCENT AUTO 1 % (0-2); EOSINOPHILS ABSOLUTE AUTO 0.32 K/mm3 (0.00-0.68); EOSINOPHILS PERCENT AUTO 4 % (0-6); Hematocrit 39.8 % (33.0-51.0); Hemoglobin 12.6 g/dL (11.5-16.0); IMMATURE GRAN ABSOLUTE AUTO 0.08 K/mm3 (0.00-0.10); IMMATURE GRAN PERCENT AUTO 1 % (0-1); LYMPHOCYTES ABSOLUTE AUTO 2.37 K/mm3 (0.84-5.20); LYMPHOCYTES PERCENT AUTO 33 % (21-46); MONOCYTES ABSOLUTE AUTO 0.52 K/mm3 (0.16-1.47); MONOCYTES PERCENT AUTO 7 % (4-13); Mean Corpuscular HGB 28.3 pg (26.0-34.0); Mean Corpuscular HGB Conc 31.7 g/dL (31.5-36.5); Mean Corpuscular Volume 89 fL (80-100); Mean Platelet Volume 9.1 fL (9.1-12.4); NEUTROPHILS ABSOLUTE AUTO 3.89 K/mm3 (1.96-9.15); NEUTROPHILS PERCENT AUTO 54 % (41-73); Platelet Count 687 K/mm3 (150-400); RDW Coefficient Variation 13.6 % (11.7-14.2); RDW Standard Deviation 44.5 fL (35.1-46.3); Red Blood Cell Count 4.46 M/mm3 (3.80-5.20); White Blood Cell Count 7.25 K/mm3 (4.00-11.30)
--- NOTE | 2020-03-04 06:51 | NUR ---
SHIFT SUMMARY HAS RESTED OFF AND ON THIS SHFIT. PAIN MEDS ADMINSTERED X2 THIS SHIFT. RLQ PIGTAIL DRAIN EMPTIED, 120ML CHICAS/GREEN PURULENT DRAINAGE CLEARED FROM BAG. DENIES PAIN, DISCOMFORT, OR FURTHER NEEDS AT THIS TIME. SAFETY MEASURES IN PLACE. WILL CONTINUE TO MONITOR ANF GIVE HAND OFF TO ONCOMING SHIFT USING SBAR DURINIG BEDSIDE REPORT.
--- NOTE | 2020-03-04 17:23 | NUR ---
TOLERATING REGULAR DIET WELL, GOES OUTSIDE TO SMOKE, EMPTIED 20CC OR PURULENT DRAINAGE FROM UROSIL DRAIN, POSSIBLE DC HOME TOMORROW PER DR. MUÑOZ, NO C/O PAIN TODAY, NO ACUTE CHANGES THIS SHIFT.
--- NOTE | 2020-03-05 06:24 | NUR ---
SHIFT SUMMARY HAS RESTED WELL, PAIN MEDS ADMINSTERED X1 THIS SHIFT. RLQ PIGTAIL DRAIN EMPTIED, 10ML CHICAS/PURULENT DRAINAGE CLEARED FROM BAG. DENIES PAIN, DISCOMFORT, OR FURTHER NEEDS AT THIS TIME. SAFETY MEASURES IN PLACE. WILL CONTINUE TO MONITOR AND GIVE HAND OFF TO ONCOMING SHIFT USING SBAR DURINIG BEDSIDE REPORT.
[2020-03-05] MEDS ORDERED: AMOCLA500 PO (08:09)
== END 2020-03-05 08:30 | disposition home or self-care (01) | DRG 871 ==
LOC: ER 10:41 → MEDS 16:51 → SURS 17:17
PROVIDERS: Emergency Medicine; ADMIT Surgery
PROC: 0W9G30Z Drainage of Peritoneal Cavity with Drainage Device, Percutaneous Approach (ICD-10-PCS; principal; 2020-03-01)
DX: A41.9 Sepsis, unspecified organism (principal); K35.33 Acute appendicitis with perforation, localized peritonitis, and gangrene, with abscess; Z20.828 Contact with and (suspected) exposure to other viral communicable diseases; I10 Essential (primary) hypertension; Z87.01 Personal history of pneumonia (recurrent); F17.210 Nicotine dependence, cigarettes, uncomplicated
CPT/HCPCS: 36415; 49405; 74178; 80048; 80053; 81001; 85025; 85610; 85730; 87070; 87077; 87086; 87186; 87205; 96361; 96365-59; 96367; 96375; 99285-25; A9270-GY; J0295; J1170; J2060; J2405; J7120; Q9967

== ENCOUNTER 2020-03-18 16:04 | Emergency (ER) | payer OTHER ==
[~2020-03-18] VITALS: Ht 162.6 cm; Wt 79.4 kg
[~2020-03-18 16:04] MED LIST changes: +AMOCLA500 PO
[2020-03-18 16:35] LABS: BASOPHILS ABSOLUTE AUTO 0.14 K/mm3 (0.00-0.23); BASOPHILS PERCENT AUTO 1 % (0-2); EOSINOPHILS ABSOLUTE AUTO 1.63 K/mm3 (0.00-0.68); EOSINOPHILS PERCENT AUTO 10 % (0-6); Hematocrit 40.5 % (33.0-51.0); Hemoglobin 12.8 g/dL (11.5-16.0); IMMATURE GRAN ABSOLUTE AUTO 0.13 K/mm3 (0.00-0.10); IMMATURE GRAN PERCENT AUTO 1 % (0-1); LYMPHOCYTES ABSOLUTE AUTO 2.75 K/mm3 (0.84-5.20); LYMPHOCYTES PERCENT AUTO 17 % (21-46); MONOCYTES ABSOLUTE AUTO 1.02 K/mm3 (0.16-1.47); MONOCYTES PERCENT AUTO 6 % (4-13); Mean Corpuscular HGB 27.4 pg (26.0-34.0); Mean Corpuscular HGB Conc 31.6 g/dL (31.5-36.5); Mean Corpuscular Volume 87 fL (80-100); Mean Platelet Volume 9.3 fL (9.1-12.4); NEUTROPHILS ABSOLUTE AUTO 10.33 K/mm3 (1.96-9.15); NEUTROPHILS PERCENT AUTO 65 % (41-73); Platelet Count 629 K/mm3 (150-400); RDW Coefficient Variation 13.6 % (11.7-14.2); RDW Standard Deviation 42.8 fL (35.1-46.3); Red Blood Cell Count 4.68 M/mm3 (3.80-5.20)
[2020-03-18 16:57] LABS: Alanine Aminotransfer (ALT/SGP 54 U/L (12-78); Albumin, Blood 3.1 g/dL (3.4-5.0); Albumin/Globulin Ratio 0.6 (0.8-1.8); Alk Phos 186 U/L (50-136); Anion Gap 8 mmol/L (6-16); Aspartate Aminotrans (AST/SGOT 28 U/L (12-37); Bilirubin, Total 0.3 mg/dL (0.1-1.0); Blood Urea Nitrogen 11 mg/dL (8-24); CO2, Blood 25 mmol/L (21-32); Calcium, Blood 9.6 mg/dL (8.5-10.1); Chloride, Blood 100 mmol/L (98-108); Creatinine, Blood 0.69 mg/dL (0.40-1.00); Globulin, Blood 5.1 g/dL (2.2-4.0); Glomerular Filtration Rate >60 (60-); Glucose, Blood 120 mg/dL (70-99); Potassium, Blood 3.7 mmol/L (3.5-5.5); Sodium, Blood 133 mmol/L (136-145); Total Protein, Blood 8.2 g/dL (6.4-8.2)
== END 2020-03-18 18:47 | disposition left against medical advice (07) ==
LOC: ER 16:04
PROVIDERS: Physician Assistant
DX: R10.31 Right lower quadrant pain (principal); Z53.21 Procedure and treatment not carried out due to patient leaving prior to being seen by health care provider
CPT/HCPCS: 36415; 80053; 85025; 99283

== ENCOUNTER 2020-03-27 15:46 | Inpatient (IN) | payer OTHER ==
[~2020-03-27] VITALS: Ht 162.6 cm; Wt 77.5 kg
[~2020-03-27 15:46] MED LIST changes: -METO25ER PO
[2020-03-27 16:39] LABS: BASOPHILS ABSOLUTE AUTO 0.08 K/mm3 (0.00-0.23); BASOPHILS PERCENT AUTO 1 % (0-2); EOSINOPHILS ABSOLUTE AUTO 0.38 K/mm3 (0.00-0.68); EOSINOPHILS PERCENT AUTO 3 % (0-6); Hematocrit 38.2 % (33.0-51.0); IMMATURE GRAN ABSOLUTE AUTO 0.06 K/mm3 (0.00-0.10); IMMATURE GRAN PERCENT AUTO 1 % (0-1); LYMPHOCYTES ABSOLUTE AUTO 2.19 K/mm3 (0.84-5.20); LYMPHOCYTES PERCENT AUTO 17 % (21-46); MONOCYTES ABSOLUTE AUTO 0.74 K/mm3 (0.16-1.47); MONOCYTES PERCENT AUTO 6 % (4-13); Mean Corpuscular HGB 27.5 pg (26.0-34.0); Mean Corpuscular HGB Conc 31.4 g/dL (31.5-36.5); Mean Corpuscular Volume 88 fL (80-100); Mean Platelet Volume 8.9 fL (9.1-12.4); NEUTROPHILS ABSOLUTE AUTO 9.77 K/mm3 (1.96-9.15); NEUTROPHILS PERCENT AUTO 74 % (41-73); Platelet Count 523 K/mm3 (150-400); RDW Coefficient Variation 13.6 % (11.7-14.2); RDW Standard Deviation 43.4 fL (35.1-46.3); Red Blood Cell Count 4.36 M/mm3 (3.80-5.20); White Blood Cell Count 13.22 K/mm3 (4.00-11.30)
[2020-03-27 16:59] LABS: Alanine Aminotransfer (ALT/SGP 16 U/L (12-78); Albumin, Blood 2.7 g/dL (3.4-5.0); Albumin/Globulin Ratio 0.6 (0.8-1.8); Alk Phos 114 U/L (50-136); Anion Gap 9 mmol/L (6-16); Aspartate Aminotrans (AST/SGOT 14 U/L (12-37); Bilirubin, Total 0.3 mg/dL (0.1-1.0); Blood Urea Nitrogen 6 mg/dL (8-24); Bun/Creatinine Ratio 8.5 (12.0-20.0); CO2, Blood 25 mmol/L (21-32); Calcium, Blood 9.1 mg/dL (8.5-10.1); Chloride, Blood 102 mmol/L (98-108); Creatinine, Blood 0.71 mg/dL (0.40-1.00); Globulin, Blood 4.7 g/dL (2.2-4.0); Glomerular Filtration Rate >60 (60-); Glucose, Blood 98 mg/dL (70-99); Potassium, Blood 3.1 mmol/L (3.5-5.5); Sodium, Blood 136 mmol/L (136-145); Total Protein, Blood 7.4 g/dL (6.4-8.2)
[2020-03-27] MEDS ORDERED: METO25ER PO (17:10)
--- NOTE | 2020-03-27 20:52 | NUR ---
PT ARRIVED TO ROOM A/O. VSS. LUNGS CLEAR T/O. PT DENIES PAIN/N/V. RLQ ABD REDDENED W/INCISION DRNG MOD-LARGE AMT PURULANT DRNG. PT DENIES INC PAIN W/PALP. PLAN TO CLEAN SITE AND REPLACE DRESSING. SURGEON AWARE OF PT ARRIVAL. PLAN TO CONT ABX PER ORDERS.
--- NOTE | 2020-03-28 05:44 | NUR ---
PT REMAINED AFEBRILE, OTHER VSS. WOUND CONT TO DRAIN LARGE AMT PURULANT DRNG, NO CHANGES IN REDNESS AROUND SITE. PT DENIED N/V. PT MED FOR PAIN X1 W/REP RELIEF. PT INDEP IN ROOM, IS USING CALL LIGHT FOR ASSISTANCE, WILL CONT TO MONITOR UNTIL REP GIVEN TO ONCOMING RN.
--- NOTE | 2020-03-28 14:36 | NUR ---
1330 TO RADIOLOGY PER CART
--- NOTE | 2020-03-28 14:47 | NUR ---
1435 return from radiology malecot drain in place to rlq . less than 10 ml of milky pink drainage present. gauze dressing dry and intact. pt tearful state "am I going to , i dont want to ". pt calmed after reassusrance offered. pt requests coffee and food
--- NOTE | 2020-03-28 17:48 | NUR ---
SUMMARY PT RESTING QUIETLY WITH EYES CLOSED AFTER RETURN FROM DRAIN PLACEMENT AND MEDICATED FOR PAIN. PT TEARFUL AND ANXIOUS AT TIMES AND ASKING IF SHE IS GOING TO , PT CALMS WHEN REASSURED ABOUT CURRENT MEDICAL CONDITION. RLQ DRAIN WITH 30 ML PURULENT CHICAS WITH PINK TINGED THICK FRAINAGE
[2020-03-29 05:01] LABS: BASOPHILS ABSOLUTE AUTO 0.08 K/mm3 (0.00-0.23); BASOPHILS PERCENT AUTO 1 % (0-2); EOSINOPHILS ABSOLUTE AUTO 0.42 K/mm3 (0.00-0.68); EOSINOPHILS PERCENT AUTO 6 % (0-6); Hematocrit 35.1 % (33.0-51.0); Hemoglobin 11.4 g/dL (11.5-16.0); IMMATURE GRAN ABSOLUTE AUTO 0.04 K/mm3 (0.00-0.10); IMMATURE GRAN PERCENT AUTO 1 % (0-1); LYMPHOCYTES PERCENT AUTO 23 % (21-46); MONOCYTES PERCENT AUTO 6 % (4-13); Mean Corpuscular HGB 27.9 pg (26.0-34.0); Mean Corpuscular HGB Conc 32.5 g/dL (31.5-36.5); Mean Corpuscular Volume 86 fL (80-100); Mean Platelet Volume 8.8 fL (9.1-12.4); NEUTROPHILS ABSOLUTE AUTO 4.62 K/mm3 (1.96-9.15); NEUTROPHILS PERCENT AUTO 64 % (41-73); Platelet Count 529 K/mm3 (150-400); RDW Coefficient Variation 13.7 % (11.7-14.2); RDW Standard Deviation 43.3 fL (35.1-46.3); Red Blood Cell Count 4.08 M/mm3 (3.80-5.20); White Blood Cell Count 7.26 K/mm3 (4.00-11.30)
--- NOTE | 2020-03-29 05:24 | NUR ---
PATIENT WAS ABLE TO SLEEP FOR MOST OF THE NIGHT. SHE DID ASK FOR PAIN MEDICATION THIS AM. THE MALICOT DRAIN IS PUTTING OUT PURULENT PINK FLUID. SECRUING DEVICE IN PLACE, NO LEAKAGE FROM THE DRAIN INCERTION SITE. NO ACUTE CHANGES. CALL LIGHT WITH IN REACH.
--- NOTE | 2020-03-29 17:04 | NUR ---
SHIFT SUMMARY PT EATING AND DRINKING, VOIDING. PT BEEN ASSISTED WITH ADL'S PRN. PT BEEN RESTING QUITLY WHEN NOT DISTURBED MOST OF DAY. PT ENC TO AMBULATE TODAY. PT BEEN ON PHONE AT TIMES. PT HAD SHOWER TODAY.
--- NOTE | 2020-03-30 04:57 | NUR ---
PATIENT WAKES ALERT AND ORIENTED.INDEPENDENT IN THE ROOM. MALICOT DRAIN WITH 60CC OF CREAMY PINK COLORED FLUID. RECIEVING PAIN MEDICATION SEVERAL TIMES THROUGHOUT THE SHIFT. CALL LIGHT IN REACH.
[2020-03-30] MEDS ORDERED: AMOCLA500 PO (17:06)
[2020-03-30] MEDS ORDERED: HYDR1TAB94 PO (17:06)
--- NOTE | 2020-03-30 17:16 | NUR ---
SHIFT SUMMARY: PATIENT HAS BEEN SLEEPING MAJORITY OF THE SHIFT, BUT EASILY AROUSABLE. SHE HAD A VISITOR COME IN TO TAKE HER OUTSIDE BY WHEELCHAIR. WHEN HER VISITOR CAME SHE HAS BEEN MORE AWAKE. SHE IS ALERT AND ORIENTED X4. SHE IS INDEPENDANT IN THE ROOM. URACIL DRAIN HAD A SCANT AMOUNT IN BAG DURING SHIFT. THE FLUID HAS BEEN A DARK RED COLOR. PATIENT HAS HAD PAIN MEDICATION TWICE DURING SHIFT. SHE HAS BEEN ON AND OFF TEARFUL STATING THAT SHE "WANTS TO GO HOME". DR. SUNSHINE CAME BY SHORTLY AFTER THIS STATEMENT, AND HE UPDATED HER ON HER STATUS. CALL LIGHT IS WITHIN REACH. HER VITALS HAVE BEEN STABLE THROUGHOUT SHIFT. WILL CONTINUE TO MONITOR.
--- NOTE | 2020-03-30 17:22 | NUR ---
DISCHARGE NOTE: PATIENT EDUCATED ON AND RECIEVED PRINTED DISCHARGE INSTRUCTIONS. VERBALIZED UNDERSTANDING. THIS NURSE DEMONSTRATED PROPER MANAGEMENT FOR HOME. HARD RX FOR NORCO PLUS AUGMENTEN GIVEN TO PATIENT. IV D/C'D. PATIENT GATHERING ALL PERSONAL BELONGINGS. PATIENT IS WAITING FOR A RIDE HOME.
== END 2020-03-30 17:30 | disposition home or self-care (01) | DRG 373 ==
LOC: ER 15:46 → SURS 20:14
PROVIDERS: Physician Assistant; Surgery; ADMIT Surgery
PROC: 0W9H30Z Drainage of Retroperitoneum with Drainage Device, Percutaneous Approach (ICD-10-PCS; principal; 2020-03-28)
DX: K35.33 Acute appendicitis with perforation, localized peritonitis, and gangrene, with abscess (principal); I10 Essential (primary) hypertension; F17.210 Nicotine dependence, cigarettes, uncomplicated; L28.0 Lichen simplex chronicus; Z79.899 Other long term (current) drug therapy
CPT/HCPCS: 36415; 49405; 74177; 80053; 83605; 85025; 87040; 87070; 87075; 87076; 87077; 87185; 87186; 87205; 93005; 93010; 96361-59; 96365-59; 96375-59; 99285-25; A9270; A9270-GY; J1170; J2405; J2543; J7030; J7050; Q9967

== ENCOUNTER 2020-12-17 00:28 | Inpatient (IN) | payer OTHER ==
[~2020-12-17] VITALS: Ht 162.6 cm; Wt 78.5 kg
[~2020-12-17 00:28] MED LIST changes: +METO25ER PO
[2020-12-17 01:08] LABS: BASOPHILS PERCENT AUTO 1 % (0-2); EOSINOPHILS ABSOLUTE AUTO 0.24 K/mm3 (0.00-0.68); EOSINOPHILS PERCENT AUTO 2 % (0-6); Hematocrit 43.7 % (33.0-51.0); Hemoglobin 13.9 g/dL (11.5-16.0); IMMATURE GRAN ABSOLUTE AUTO 0.03 K/mm3 (0.00-0.10); IMMATURE GRAN PERCENT AUTO 0 % (0-1); LYMPHOCYTES ABSOLUTE AUTO 1.93 K/mm3 (0.84-5.20); LYMPHOCYTES PERCENT AUTO 16 % (21-46); MONOCYTES ABSOLUTE AUTO 0.58 K/mm3 (0.16-1.47); MONOCYTES PERCENT AUTO 5 % (4-13); Mean Corpuscular HGB 27.7 pg (26.0-34.0); Mean Corpuscular HGB Conc 31.8 g/dL (31.5-36.5); Mean Corpuscular Volume 87 fL (80-100); Mean Platelet Volume 10.3 fL (9.1-12.4); NEUTROPHILS ABSOLUTE AUTO 9.02 K/mm3 (1.96-9.15); NEUTROPHILS PERCENT AUTO 76 % (41-73); Platelet Count 313 K/mm3 (150-400); RDW Coefficient Variation 14.6 % (11.7-14.2); Red Blood Cell Count 5.02 M/mm3 (3.80-5.20)
[2020-12-17 01:24] LABS: Alanine Aminotransfer (ALT/SGP 57 U/L (12-78); Albumin, Blood 3.5 g/dL (3.4-5.0); Alk Phos 127 U/L (50-136); Anion Gap 8 mmol/L (6-16); Aspartate Aminotrans (AST/SGOT 42 U/L (12-37); Bilirubin, Total 0.8 mg/dL (0.1-1.0); Blood Urea Nitrogen 10 mg/dL (8-24); Bun/Creatinine Ratio 13.4 (12.0-20.0); CO2, Blood 24 mmol/L (21-32); Calcium, Blood 8.4 mg/dL (8.5-10.1); Chloride, Blood 107 mmol/L (98-108); Creatinine, Blood 0.75 mg/dL (0.40-1.00); Globulin, Blood 3.6 g/dL (2.2-4.0); Glomerular Filtration Rate >60 (60-); Glucose, Blood 99 mg/dL (70-99); Potassium, Blood 3.6 mmol/L (3.5-5.5); Sodium, Blood 139 mmol/L (136-145); Total Protein, Blood 7.1 g/dL (6.4-8.2); Troponin I 0.025 ng/mL (0.000-0.040)
[2020-12-17 02:59] LABS: Base Excess Venous 0.4 mmol/L; Bicarbonate Venous 23.6 mmol/L (24.0-30.0); PCO2 Venous 48.7 mmHg (38-42); PO2 Venous 41.4 mmHg (38-42); pH Blood Venous 7.34 (7.34-7.37)
[2020-12-17 06:09] LABS: Source, Urine Clean Catch
[2020-12-17 06:34] LABS: Bilirubin, Urine Neg (Neg); Blood, Urine Neg (Neg); Glucose Qualitative, Urine Neg (Neg); Ketones, Urine Neg (Neg); Leukocyte Esterase, Urine Neg (Neg); Nitrite, Urine Neg (Neg); Protein, Urine Neg (Neg); Specific Gravity, Urine 1.005 (1.003-1.022); Urobilinogen, Urine NORM (Normal)
[2020-12-17 06:40] LABS: Appearance, Urine Clear (Clear); Color, Urine Pale Yellow (P-Yellow)
[2020-12-17 06:46] LABS: U Amphetamine Screen DETECTED; U Barbituate Screen Not Detected; U Benzodiazapine Screen Not Detected; U Buprenorphine Screen Not Detected; U Cannabinoids Screen Not Detected; U Cocaine Screen Not Detected; U Methadone Screen Not Detected; U Methamphetamine Screen DETECTED; U Opiates Screen Not Detected; U Phencyclidine Screen Not Detected
[2020-12-17 06:47] LABS: U Oxycodone Screen Not Detected; U Propoxyphene Screen Not Detected
--- NOTE | 2020-12-17 06:50 | NUR ---
PT ARRIVED TO ICU RM 4 @ 05:50. DR HILARIO TO BEDSIDE TO EVALUATE PT. UPON MONITORING BP, PLACED ON NITRO DRIP, ORDERS OBTAINED FOR U.A. AND TOX SCREEN, HASSAN. STARTED NITRO DRIP, INCREASED TO 20 MCG/MIN, URINE SENT TO LAB. ASSESSMENT IS CHARTED. WILL CONTINUE TO MONITOR.
--- NOTE | 2020-12-17 07:15 | NUR ---
Assumed care at 0700. Bedside report received from Main SANCHEZ. Pt A&O x 4, but drowsy. Answers questions, follows commands, verbalizes needs. Hypertensive. On nitroglycerin drip at 20 mcg/min at shift change. Plan to titrate up to achieve SBP less than 160. ST per monitor. BP denies chest pain or shortness of breath. Pt on BiPAP 16/8, 30% FiO2. SpO2 100%. Lungs clear with diminished bases. Pt's hands and feet are mottled in appearance. Bed in lowest position. Call light in reach. Pt denies need at this time.
[2020-12-17 07:48] LABS: Source, Urine Catheter
[2020-12-17 07:55] LABS: Appearance, Urine Clear (Clear); Bilirubin, Urine Neg (Neg); Blood, Urine 1+ (Neg); Color, Urine Yellow (P-Yellow); Glucose Qualitative, Urine Neg (Neg); Ketones, Urine Neg (Neg); Leukocyte Esterase, Urine Neg (Neg); Nitrite, Urine Neg (Neg); Protein, Urine Neg (Neg); Specific Gravity, Urine 1.005 (1.003-1.022); Urobilinogen, Urine NORM (Normal)
[2020-12-17 08:08] LABS: Bacteria Rare /hpf; Squamous Epithelial Cells Rare /hpf (Few); White Blood Cells, Urine 0-2 /hpf (0-5)
--- NOTE | 2020-12-17 11:11 | NUR ---
Echocardiogram completed.
[2020-12-17 13:00] LABS: Troponin I 0.022 ng/mL (0.000-0.040)
--- NOTE | 2020-12-17 19:52 | NUR ---
SUMMARY Labetalol effective at lowering pt's blood pressure. Nitroglycerin drip is off, see flow sheet for specifics. Dr Gao and Dr Ovalles aware of nitro drip titrations this shift. Pt drowsy for majority of shift. Repositons independnently in bed. Requires 1 LPM NC when sleeping to maintain SpO2 90%. Able to take pills safely but didn't really eat much this shift due to sleepiness. Pt's friend, Hien, in to see patient today. Stated satisfaction that pt was sleeping because "She hasn't slept for almost a month because of how sick she was feeling". ST per montior, BP stable. Excellent urine output from adames catheter. Bed in lowest position. Call light in reach. Report given to Edna SANCHEZ.
--- NOTE | 2020-12-17 21:33 | NUR ---
ASSUMED CARE AT 1900 PT IS ALERT/ORIENTED X4 WHEN AWAKE BUT IS ASLEEP WHEN NOT STIMULATED AND DOES WAKE TO VERBAL STIMULI;PT SPEECH OCCATIONALLY FAST AND DIFFICULT TO UNDERSTAND. SPO2 >90% ON RA. AFEBRILE. SINUS TACH NOTED WITH RATE 100-120. SBP 100-145, NITRO GTT ON SB. HASSAN IN PLACE AND DRAINING TO GRAVITY. SEE SHIFT ASSESSMENT FOR FULL ASSESSMENT. SEE SHIFT ASSESSMENT FOR FULL ASSESSMENT.
[2020-12-17 21:37] LABS: Troponin I 0.035 ng/mL (0.000-0.040)
[2020-12-18 03:29] LABS: BASOPHILS ABSOLUTE AUTO 0.09 K/mm3 (0.00-0.23); BASOPHILS PERCENT AUTO 1 % (0-2); EOSINOPHILS ABSOLUTE AUTO 0.21 K/mm3 (0.00-0.68); EOSINOPHILS PERCENT AUTO 2 % (0-6); Hematocrit 44.6 % (33.0-51.0); Hemoglobin 14.3 g/dL (11.5-16.0); IMMATURE GRAN ABSOLUTE AUTO 0.02 K/mm3 (0.00-0.10); IMMATURE GRAN PERCENT AUTO 0 % (0-1); LYMPHOCYTES ABSOLUTE AUTO 2.22 K/mm3 (0.84-5.20); LYMPHOCYTES PERCENT AUTO 19 % (21-46); MONOCYTES ABSOLUTE AUTO 1.01 K/mm3 (0.16-1.47); MONOCYTES PERCENT AUTO 9 % (4-13); Mean Corpuscular HGB 27.9 pg (26.0-34.0); Mean Corpuscular HGB Conc 32.1 g/dL (31.5-36.5); Mean Corpuscular Volume 87 fL (80-100); Mean Platelet Volume 10.1 fL (9.1-12.4); NEUTROPHILS ABSOLUTE AUTO 7.93 K/mm3 (1.96-9.15); NEUTROPHILS PERCENT AUTO 69 % (41-73); Platelet Count 322 K/mm3 (150-400); RDW Coefficient Variation 14.9 % (11.7-14.2); RDW Standard Deviation 47.1 fL (35.1-46.3); Red Blood Cell Count 5.12 M/mm3 (3.80-5.20); White Blood Cell Count 11.48 K/mm3 (4.00-11.30)
[2020-12-18 03:48] LABS: Alanine Aminotransfer (ALT/SGP 57 U/L (12-78); Albumin, Blood 3.5 g/dL (3.4-5.0); Albumin/Globulin Ratio 0.9 (0.8-1.8); Alk Phos 125 U/L (50-136); Anion Gap 4 mmol/L (6-16); Aspartate Aminotrans (AST/SGOT 37 U/L (12-37); Bilirubin, Total 0.8 mg/dL (0.1-1.0); Blood Urea Nitrogen 14 mg/dL (8-24); CO2, Blood 32 mmol/L (21-32); Calcium, Blood 8.6 mg/dL (8.5-10.1); Chloride, Blood 102 mmol/L (98-108); Creatinine, Blood 0.93 mg/dL (0.40-1.00); Globulin, Blood 3.7 g/dL (2.2-4.0); Glomerular Filtration Rate >60 (60-); Glucose, Blood 107 mg/dL (70-99); Potassium, Blood 3.3 mmol/L (3.5-5.5); Sodium, Blood 138 mmol/L (136-145); Total Protein, Blood 7.2 g/dL (6.4-8.2)
--- NOTE | 2020-12-18 06:50 | NUR ---
END OF SHIFT SUMMARY PT SLEPT FOR ALL OF THE SHIFT WHEN NOT STIMULATED. PT IS RESPONSIVE TO VERBAL STIMULI AND IS ALERT/ORIENTED X4. SPO2 >90% ON RA. AFEBRILE. HR 100-120. SBP 150-170 WITH NITRO GTT AT 15MCG/MIN. HASSAN PATENT AND DRAINING TO GRAVITY. PT HAS NO C/O CHEST PAIN, DYSPNEA, OR NAUSEA. WILL REPORT TO AM RN WHEN AVAILABLE.
--- NOTE | 2020-12-18 07:03 | NUR ---
Assumed care of pt at 0700. Bedside report received from Edna SANCHEZ. Pt A&O x 4. Answers questions. Follows commands. Verbalizes needs. Pleasant and cooperative with care. Lethargic, and often falls back asleep in absence of stimuluation. ST per monitor, rate 106, PACs noted. Hypertensive. Nitroglycerin drip at 15 mcg/min. Plan to titrate to achieve SBP less than [address] mmHg[address] catheter in place, draining clear, yellow urine. Bed in lowest position. Call light in reach. Pt denies need at this time.
--- NOTE | 2020-12-18 08:06 | NUR ---
Dr Elkin Early in to see patient. Discussed AM potassium level, pt's lasix dosing, and that pt is on nitroglycerin drip again. Provider states that nifedipine order will likely be changed to a different medication.
--- NOTE | 2020-12-18 15:23 | NUR ---
Call placed to Dr Ovalles to discuss that patient is off nitro drip for several hours now. Inquired if pt needs ICU status still, provider states that pt may be medical floor status without telemetry Pt to imaging at this time for first portion of stress test.
--- NOTE | 2020-12-18 16:18 | NUR ---
Patient back to room from first portion of stress test. Pt very alert. States she want to go home. States she is feeling "normal" and that her main concern was shortness of breath, which has resolved. Educated on heart failure and pulmonary edema. Educated on how BiPAP use and diuretics helped her feel less short of breath. Educated on reason pt is having a stress test done. Pt engaged in conversation, asking questions. Asks about specific diet. Educated on low-salt, low-fat diet. Discussed importance of taking blood pressure medications and stopping methamphetamine use. Pt verbalizes understanding. Asked pt if she thinks she will be able to stop using methamphetamine and she states "That shouldn't be a problem". Pt additionally states she smokes tobacco, one pack of cigarettes per day. Educated that tobacco is not a good choice for heart health. Asked pt if a nicotine patch would help her feel more comfortable while in hospital and pt states "I have never used one, but I would like to try". Overall, pt seems highly motivated to make lifestyle changes to improve her heart health and is very pleasant and cooperative with current plan of care.
--- NOTE | 2020-12-18 17:45 | NUR ---
PT ARRIVED TO ROOM 334 FROM ICU 4 VIA W/C. PT STOOD AND TRANSFERRED TO BED WITH MINIMAL ASSIST. ORIENTED TO ROOM AND CALL SYSTEM. PT IS A/O X4, PLEASANT AND COOPERATIVE WITH CARE. HASSAN CATH IN PLACE FOR HEAVY DIURESIS. BED IN LOWEST POSITION AND CALL ORTIZ IN REACH. WILL CONTINUE TO MONITOR.
--- NOTE | 2020-12-18 17:45 | NUR ---
Transferred to medical floor. Chart, medications, and belongings transferred with patient. Telephone report given to Juju SANCHEZ.
--- NOTE | 2020-12-18 19:10 | NUR ---
ASSUMED CARE RECEIVED REPORT FROM DANIEL GALAVIZ. PT ASLEEP, IN NO ACUTE DISTRESS. NO ACUTE NEEDS ASSESSED AT THIS TIME. CALL LIGHT, POSSESSIONS IN REACH.
--- NOTE | 2020-12-19 04:35 | NUR ---
BUGGY RUNNER SUMMARY PT ASLEEP, IN NAD. NO ACUTE CHANGES TO REPORT OVERNIGHT, HAS BEEN ASLEEP THROUGHOUT. HASSAN CATHETER REMAINS IN PLACE, DRAINING NIKOLE YELLOW URINE TO GRAVITY, TUBING FREE OF KINKS. HAS DENIED PAIN. NO ACUTE NEEDS ASSESSED AT THIS TIME. CALL LIGHT, POSSESSIONS IN REACH, BED IN LOW AND LOCKED POSITION WITH ALARMS ON. WILL CONTINUE TO PROVIDE CARE UNTIL REPORT GIVEN TO ONCOMING RN.
[2020-12-19 07:29] LABS: BASOPHILS PERCENT AUTO 1 % (0-2); EOSINOPHILS ABSOLUTE AUTO 0.57 K/mm3 (0.00-0.68); EOSINOPHILS PERCENT AUTO 7 % (0-6); Hematocrit 47.9 % (33.0-51.0); Hemoglobin 15.5 g/dL (11.5-16.0); IMMATURE GRAN ABSOLUTE AUTO 0.01 K/mm3 (0.00-0.10); IMMATURE GRAN PERCENT AUTO 0 % (0-1); LYMPHOCYTES ABSOLUTE AUTO 2.38 K/mm3 (0.84-5.20); LYMPHOCYTES PERCENT AUTO 30 % (21-46); MONOCYTES ABSOLUTE AUTO 0.53 K/mm3 (0.16-1.47); MONOCYTES PERCENT AUTO 7 % (4-13); Mean Corpuscular HGB 27.6 pg (26.0-34.0); Mean Corpuscular HGB Conc 32.4 g/dL (31.5-36.5); Mean Corpuscular Volume 85 fL (80-100); Mean Platelet Volume 10.5 fL (9.1-12.4); NEUTROPHILS ABSOLUTE AUTO 4.31 K/mm3 (1.96-9.15); NEUTROPHILS PERCENT AUTO 55 % (41-73); Platelet Count 342 K/mm3 (150-400); RDW Coefficient Variation 14.6 % (11.7-14.2); RDW Standard Deviation 45.1 fL (35.1-46.3); Red Blood Cell Count 5.62 M/mm3 (3.80-5.20)
[2020-12-19 07:51] LABS: Anion Gap 8 mmol/L (6-16); Blood Urea Nitrogen 19 mg/dL (8-24); Bun/Creatinine Ratio 25.5 (12.0-20.0); CO2, Blood 28 mmol/L (21-32); Calcium, Blood 8.9 mg/dL (8.5-10.1); Chloride, Blood 101 mmol/L (98-108); Creatinine, Blood 0.75 mg/dL (0.40-1.00); Glomerular Filtration Rate >60 (60-); Glucose, Blood 95 mg/dL (70-99); Potassium, Blood 3.4 mmol/L (3.5-5.5); Sodium, Blood 137 mmol/L (136-145)
--- NOTE | 2020-12-19 16:42 | NUR ---
PATIENT IS ALERT AND ORIENTED AND COOPERATIVE WITH CARE. PATIENT SLEPT UNTIL 1130. ORDE WAS PLACED TO OH SONYA, HASSAN WAS PULLED AND CHARTED. PATIENT COMPLETED THE STRESS TEST THIS AFTERNOON AND NOW AWAITING THE RESULTS. SHE HOPES TO GO HOME [facility]. PATIENT AMBULATES WELL TO THE BATHROOM. SHE SHOWERED HERSELF TODAY. WILL CONTINUE TO MONITOR
--- NOTE | 2020-12-19 18:43 | NUR ---
PT GAVE THIS STUDENT NURSE PERMISSION TO PROVIDE CARE ON 12/19/20.
--- NOTE | 2020-12-20 05:23 | NUR ---
SHIFT SUMMARY PT ANXIOUS&HYPER FOCUSE ON STRESS TEST RESULTS. D/C IV IN RIGHT AC D/T BEING LEAKY. SLEPT WELL FOR THE 2ND HALF OF THE SHIFT. PT ANTICIPATES BEING DISCHARGED TODAY. BED IN LOWEST POSITON & CALL LIGHT WITHIN REACH. WILL CONTINUE TO MONITOR.
[2020-12-20 05:29] LABS: BASOPHILS PERCENT AUTO 1 % (0-2); EOSINOPHILS PERCENT AUTO 8 % (0-6); Hematocrit 52.9 % (33.0-51.0); IMMATURE GRAN ABSOLUTE AUTO 0.02 K/mm3 (0.00-0.10); IMMATURE GRAN PERCENT AUTO 0 % (0-1); LYMPHOCYTES ABSOLUTE AUTO 3.02 K/mm3 (0.84-5.20); LYMPHOCYTES PERCENT AUTO 38 % (21-46); MONOCYTES ABSOLUTE AUTO 0.67 K/mm3 (0.16-1.47); MONOCYTES PERCENT AUTO 8 % (4-13); Mean Corpuscular HGB 27.4 pg (26.0-34.0); Mean Corpuscular HGB Conc 32.1 g/dL (31.5-36.5); Mean Corpuscular Volume 85 fL (80-100); NEUTROPHILS ABSOLUTE AUTO 3.53 K/mm3 (1.96-9.15); NEUTROPHILS PERCENT AUTO 44 % (41-73); Platelet Count 405 K/mm3 (150-400); RDW Coefficient Variation 14.8 % (11.7-14.2); RDW Standard Deviation 44.7 fL (35.1-46.3); Red Blood Cell Count 6.21 M/mm3 (3.80-5.20); White Blood Cell Count 7.94 K/mm3 (4.00-11.30)
[2020-12-20 05:47] LABS: Anion Gap 7 mmol/L (6-16); Blood Urea Nitrogen 21 mg/dL (8-24); Bun/Creatinine Ratio 24.5 (12.0-20.0); CO2, Blood 29 mmol/L (21-32); Calcium, Blood 9.4 mg/dL (8.5-10.1); Chloride, Blood 99 mmol/L (98-108); Creatinine, Blood 0.86 mg/dL (0.40-1.00); Glomerular Filtration Rate >60 (60-); Glucose, Blood 103 mg/dL (70-99); Potassium, Blood 3.7 mmol/L (3.5-5.5); Sodium, Blood 135 mmol/L (136-145)
[2020-12-20] MEDS ORDERED: FURO40 PO (12:19)
[2020-12-20] MEDS ORDERED: METO100ER PO (12:20)
[2020-12-20] MEDS ORDERED: LISI20 PO (12:20)
[2020-12-20] MEDS ORDERED: POTA10T PO (12:21)
--- NOTE | 2020-12-20 12:59 | NUR ---
STUDENT ASSESSMENT REVIEW I HAVE REVIEWED THE STUDENT'S ASSESSMENT, CONDUCETED MY OWN ASSESSMENT, AND I AGREE WITH THE STUDENT'S FINDINGS
--- NOTE | 2020-12-20 14:43 | NUR ---
Discharge Summary, Patient was A/OX4 to person, place, time, and event. She has anxiety/crying mood changes off and on. Anxiety decreased with discharge.She has been compliant and cooperative with care. She was given verbal and written discharge instructions and we reinforced the need to monitor daily weights and fluid intake. She did not have any questions or concerns about her discharge instructions. The patient was taken by wheelchair to the patient entrance and was assisted into her friend's POV.
== END 2020-12-20 13:52 | disposition home or self-care (01) | DRG 291 ==
LOC: ER 00:28 → ICUW 04:20 → ICUE 05:21 → MEDS 12-18 17:43
PROVIDERS: Student in an Organized Health Care Education/Training Program; ADMIT Internal Medicine
PROC: 5A09457 Assistance with Respiratory Ventilation, 24-96 Consecutive Hours, Continuous Positive Airway Pressure (ICD-10-PCS; principal; 2020-12-17)
DX: I11.0 Hypertensive heart disease with heart failure (principal); I50.21 Acute systolic (congestive) heart failure; J96.21 Acute and chronic respiratory failure with hypoxia; I16.1 Hypertensive emergency; F17.210 Nicotine dependence, cigarettes, uncomplicated; F15.10 Other stimulant abuse, uncomplicated; E87.6 Hypokalemia
CPT/HCPCS: 36415; 71045; 78452; 80048; 80053; 81001; 81003; 82550; 82803; 83735; 83880; 84145; 84484; 85025; 93005; 93010; 93017; 93306; 94640; 94644; 94660; 96374; 96375; 99285-25; A9270; A9500; J0280; J1650; J1940; J2060; J2785; J7120; J7512

== ENCOUNTER 2021-01-07 06:53 | Observation (INO) | payer OTHER ==
[~2021-01-07] VITALS: Ht 162.6 cm; Wt 79.5 kg
[~2021-01-07 06:53] MED LIST changes: +FURO40 PO; +METO100ER PO; +POTA10T PO
[2021-01-07 07:18] LABS: BASOPHILS ABSOLUTE AUTO 0.07 K/mm3 (0.00-0.23); BASOPHILS PERCENT AUTO 1 % (0-2); EOSINOPHILS ABSOLUTE AUTO 0.26 K/mm3 (0.00-0.68); EOSINOPHILS PERCENT AUTO 3 % (0-6); Hematocrit 42.8 % (33.0-51.0); Hemoglobin 13.9 g/dL (11.5-16.0); IMMATURE GRAN ABSOLUTE AUTO 0.03 K/mm3 (0.00-0.10); IMMATURE GRAN PERCENT AUTO 0 % (0-1); LYMPHOCYTES ABSOLUTE AUTO 2.22 K/mm3 (0.84-5.20); LYMPHOCYTES PERCENT AUTO 24 % (21-46); MONOCYTES ABSOLUTE AUTO 0.46 K/mm3 (0.16-1.47); MONOCYTES PERCENT AUTO 5 % (4-13); Mean Corpuscular HGB 28.1 pg (26.0-34.0); Mean Corpuscular HGB Conc 32.5 g/dL (31.5-36.5); Mean Corpuscular Volume 87 fL (80-100); Mean Platelet Volume 9.7 fL (9.1-12.4); NEUTROPHILS ABSOLUTE AUTO 6.13 K/mm3 (1.96-9.15); NEUTROPHILS PERCENT AUTO 67 % (41-73); Platelet Count 338 K/mm3 (150-400); RDW Coefficient Variation 14.5 % (11.7-14.2); RDW Standard Deviation 43.4 fL (35.1-46.3); Red Blood Cell Count 4.95 M/mm3 (3.80-5.20); White Blood Cell Count 9.17 K/mm3 (4.00-11.30)
[2021-01-07 07:37] LABS: Alanine Aminotransfer (ALT/SGP 63 U/L (12-78); Albumin, Blood 3.3 g/dL (3.4-5.0); Albumin/Globulin Ratio 0.9 (0.8-1.8); Alk Phos 124 U/L (50-136); Anion Gap 6 mmol/L (6-16); Aspartate Aminotrans (AST/SGOT 36 U/L (12-37); Bilirubin, Total 0.5 mg/dL (0.1-1.0); Blood Urea Nitrogen 8 mg/dL (8-24); Bun/Creatinine Ratio 10.9 (12.0-20.0); CO2, Blood 25 mmol/L (21-32); Calcium, Blood 8.1 mg/dL (8.5-10.1); Chloride, Blood 106 mmol/L (98-108); Creatinine, Blood 0.73 mg/dL (0.40-1.00); Globulin, Blood 3.5 g/dL (2.2-4.0); Glomerular Filtration Rate >60 (60-); Glucose, Blood 97 mg/dL (70-99); Potassium, Blood 3.2 mmol/L (3.5-5.5); Sodium, Blood 137 mmol/L (136-145); Total Protein, Blood 6.8 g/dL (6.4-8.2); Troponin I 0.203 ng/mL (0.000-0.040)
[2021-01-07 09:23] LABS: U Amphetamine Screen DETECTED; U Barbituate Screen Not Detected; U Benzodiazapine Screen Not Detected; U Buprenorphine Screen Not Detected; U Cannabinoids Screen Not Detected; U Cocaine Screen Not Detected; U Methadone Screen Not Detected; U Methamphetamine Screen DETECTED; U Opiates Screen Not Detected; U Oxycodone Screen Not Detected; U Phencyclidine Screen Not Detected; U Propoxyphene Screen Not Detected
--- NOTE | 2021-01-07 13:18 | NUR ---
Received reporrt from ER. Patient arrived via gurney and self ambulated to ICU 16 bed. Hooked up to monitor and placed 18ga IV in LFA and started NS and potassium rider, had to reduce rate to 25 ml/hr r/t painful at IV site. She is on RA and sats >90%. She is depressed as she does not want to and leave her 11 y/o daughter and stes she wants to quit meth. VSS, See EMR. She is currently sleeping. Will start her on 2GM low sodium diet.
--- NOTE | 2021-01-07 14:51 | NUR ---
echocardiogram completed
--- NOTE | 2021-01-07 15:09 | NUR ---
Patient remains SR 80-90's. Still hypertensive and nitro paste applied to left shest and nicoderm to left shoulder. She has been resting and potassium continues to infuse. She denies any chest pain. Tolerating diet/
--- NOTE | 2021-01-07 17:28 | NUR ---
Gave report to MED floor RN. All three rider in and NS stopped. Patient transferred to Medical floor with belongings via wheelchair. She tolerated about 50% of her late lunch.
--- NOTE | 2021-01-07 17:59 | NUR ---
PT TRANSFERRED FROM ICU. HANDOFF REPORT FROM SRIDHAR SANCHEZ. PT IS ALERT AND ORIENTED, SOME WHAT SOMBER AND TEARFUL, STATING SHE DOESNT WANT TO FROM METH SHE HAS AN 11 YEAR OLD DAUGHTER. PT IS SBA AT THIS TIME.RESTING WITH NO COMPLAINTS. CALL LIGHT WITHIN REACH.
[2021-01-08 04:36] LABS: BASOPHILS ABSOLUTE AUTO 0.08 K/mm3 (0.00-0.23); BASOPHILS PERCENT AUTO 1 % (0-2); EOSINOPHILS ABSOLUTE AUTO 0.16 K/mm3 (0.00-0.68); EOSINOPHILS PERCENT AUTO 2 % (0-6); Hematocrit 45.3 % (33.0-51.0); Hemoglobin 15.2 g/dL (11.5-16.0); IMMATURE GRAN ABSOLUTE AUTO 0.04 K/mm3 (0.00-0.10); IMMATURE GRAN PERCENT AUTO 0 % (0-1); LYMPHOCYTES ABSOLUTE AUTO 1.86 K/mm3 (0.84-5.20); LYMPHOCYTES PERCENT AUTO 17 % (21-46); MONOCYTES PERCENT AUTO 5 % (4-13); Mean Corpuscular HGB 28.3 pg (26.0-34.0); Mean Corpuscular HGB Conc 33.6 g/dL (31.5-36.5); Mean Corpuscular Volume 84 fL (80-100); Mean Platelet Volume 9.6 fL (9.1-12.4); NEUTROPHILS ABSOLUTE AUTO 8.12 K/mm3 (1.96-9.15); NEUTROPHILS PERCENT AUTO 76 % (41-73); Platelet Count 370 K/mm3 (150-400); RDW Coefficient Variation 14.6 % (11.7-14.2); RDW Standard Deviation 43.4 fL (35.1-46.3); Red Blood Cell Count 5.37 M/mm3 (3.80-5.20); White Blood Cell Count 10.76 K/mm3 (4.00-11.30)
[2021-01-08 05:14] LABS: Alanine Aminotransfer (ALT/SGP 58 U/L (12-78); Albumin, Blood 3.4 g/dL (3.4-5.0); Albumin/Globulin Ratio 0.9 (0.8-1.8); Alk Phos 124 U/L (50-136); Anion Gap 6 mmol/L (6-16); Aspartate Aminotrans (AST/SGOT 28 U/L (12-37); Blood Urea Nitrogen 9 mg/dL (8-24); CO2, Blood 25 mmol/L (21-32); Calcium, Blood 8.5 mg/dL (8.5-10.1); Chloride, Blood 104 mmol/L (98-108); Creatinine, Blood 0.69 mg/dL (0.40-1.00); Globulin, Blood 3.7 g/dL (2.2-4.0); Glomerular Filtration Rate >60 (60-); Glucose, Blood 94 mg/dL (70-99); Magnesium, Blood 1.9 mg/dL (1.6-2.4); Potassium, Blood 3.7 mmol/L (3.5-5.5); Sodium, Blood 135 mmol/L (136-145); Total Protein, Blood 7.1 g/dL (6.4-8.2)
--- NOTE | 2021-01-08 06:38 | NUR ---
TRADE SHOW SPECIALIST SUMMARY PT AAOX4 AND PLEASANT. DENIES CP TONIGHT. SR W/ PVC'S IN THE 90'S ON TELEMETRY. PT HAS BEEN HYPERTENSIVE WITH SBP 160-170'S. NOTIFIED DR HILARIO AND RECIEVED ORDER FOR PRN HYDRALAZINE. PT MEDICATED WITH HYDRALAZINE X2 WITH MINIMAL EFFECT ON BP. 2ND DOSE GIVEN AROUND 0635, WILL NOTIFY DAY SHIFT RN TO REASSESS BP WITH MORNING VITALS. WILL CONTINUE TO MONITOR UNTIL DAY RN ASSUMES CARE.
--- NOTE | 2021-01-08 15:41 | NUR ---
RECURRING SVT Notified by telecommunicator Kimmie RE HR 180's. Upon arrival to patient's room, patient was resting in bed and had a visitor. Patient reports mild chest tightness and c/o fast HR. VS taken and patient still in 180's. Called Dr. Villasenor, T.O. to give one time stat Metoprolol IV 5mg. inventory auditor Josie in the room with patient instructing patient to bear down. Metoprolol given, HR now sustaining 160's. Dr. Villasenor notified again. T.O. to transfer to PCU and give ordered dose of adenosine. inventory auditorDANIEL Ramirez notified, awaiting PCU bed. EKG completed in room and placed in front of chart.
[2021-01-08 15:42] LABS: Magnesium, Blood 1.8 mg/dL (1.6-2.4); Potassium, Blood 3.9 mmol/L (3.5-5.5)
--- NOTE | 2021-01-08 15:51 | NUR ---
-UPDATE- Patient to transfer to PCU 9. Called to give report to receiving RN, RN will call this RN back.
--- NOTE | 2021-01-08 16:05 | NUR ---
CONVERTED BACK TO SINUS RHYTHM Patient converted back to SR as this RN was giving report. Dr. Villasenor notified, in-house transfer and adenosine cancelled.
--- NOTE | 2021-01-08 16:31 | NUR ---
Shift Summary A/Ox4, pleasant and cooperative, a little anxious when HR elevated. Up in room independently. Denies pain, nausea, vomiting. Appetite is good. Patient has been sleeping quite a bit today. Had one visitor she called "Ozzie Driscoll". Tele: SR 90's currently. Nicotine patch to [facility]. CM provided drug rehab resources to patient, placed on bedside table. WCTM and report to oncoming RN.
--- NOTE | 2021-01-09 05:08 | NUR ---
AIR TOOL OPERATOR SUMMARY NO ACUTE CHANGES THIS SHIFT. PT AAXO4 AND PLEASANT. NO COMPLAINTS OF PAIN, SOB, N/V. PT HAS SLEPT MOST OF THE NIGHT. NO CHANGES NOTED ON TELEMETRY. WILL CONTINUE TO MONITOR.
[2021-01-09] MEDS ORDERED: Nicoderm Cq1 EAC1 TOP (10:34)
--- NOTE | 2021-01-09 12:48 | NUR ---
Discharge Summary A/Ox4, slept through the morning. Awakens for meals. Had a shower prior to discharge. Going home. Reviewed discharge paperwork with patient. Questions answered. Patient appears anxious and tearful. States intention to quit meth, smoking, and will f/u with drug rehab program. Patient reports not knowing where metoprolol and lisinopril are at home. Called Jaleesa Romeo to call into pharmacy for one month supply of each. This was called in to [facility]. IVs removed, WNL. Copy of d/c paperwork given. Escorted by ROD MILL OPERATOR via w/c, personal transport home.
== END 2021-01-09 12:56 | disposition home or self-care (01) ==
LOC: ER 06:53 → ERHOLD 06:54 → MEDS 06:54 → ICUW 12:20 → MEDS 17:33
PROVIDERS: Emergency Medicine; Family Medicine; Nurse Practitioner Acute Care; ADMIT Internal Medicine
DX: I47.1 Supraventricular tachycardia (principal); F15.19 Other stimulant abuse with unspecified stimulant-induced disorder; I42.8 Other cardiomyopathies; J44.9 Chronic obstructive pulmonary disease, unspecified; I11.0 Hypertensive heart disease with heart failure; I50.22 Chronic systolic (congestive) heart failure; F17.210 Nicotine dependence, cigarettes, uncomplicated; E78.5 Hyperlipidemia, unspecified; E87.6 Hypokalemia; E83.42 Hypomagnesemia; Z91.19 Patient's noncompliance with other medical treatment and regimen
CPT/HCPCS: 36415; 71045; 80053; 83735; 83880; 84132; 84443; 84484; 85025; 93005; 93010; 93308; 93321; 96365; 96366; 96368; 96372; 96375; 96376; 99285-25; A9270; G0378; J0360; J1650; J1940; J3475; J3480; J7030

== ENCOUNTER 2021-01-25 03:56 | Emergency (ER) | payer OTHER ==
[~2021-01-25] VITALS: Ht 162.6 cm; Wt 73.9 kg
[~2021-01-25 03:56] MED LIST changes: +Nicoderm Cq1 EAC1 TOP
[2021-01-25] MEDS ORDERED: PENVK250 PO (04:53)
== END 2021-01-25 05:03 | disposition home or self-care (01) ==
LOC: ER 03:56
DX: K04.7 Periapical abscess without sinus (principal); I11.0 Hypertensive heart disease with heart failure; I50.9 Heart failure, unspecified; F17.200 Nicotine dependence, unspecified, uncomplicated; Z79.899 Other long term (current) drug therapy
CPT/HCPCS: 99282; A9270

== ENCOUNTER → 2021-03-18 | Outpatient (CLI) | payer OTHER ==
[~2021-03-18] MED LIST changes: +PENVK250 PO
[2021-03-18 20:33] LABS: Follicle Stimulating Hormone 69.3 mIU/ml; Luteinizing Hormone 68.7 mIU/ml
== END ==
LOC: LAB SHORT 18:04 → LAB 18:04
PROVIDERS: Registered Nurse Community Health
DX: N91.2 Amenorrhea, unspecified (principal)
CPT/HCPCS: 83001; 83002

== ENCOUNTER 2022-04-09 13:34 | Emergency (ER) | payer OTHER ==
[~2022-04-09] VITALS: Ht 162.6 cm; Wt 72.6 kg
== END 2022-04-09 15:14 | disposition home or self-care (01) ==
LOC: ER 13:34
DX: R19.15 Other abnormal bowel sounds (principal); I11.0 Hypertensive heart disease with heart failure; I50.9 Heart failure, unspecified; F17.210 Nicotine dependence, cigarettes, uncomplicated; Z79.899 Other long term (current) drug therapy
CPT/HCPCS: 71045

== ENCOUNTER → 2023-04-19 | Outpatient (CLI) | payer OTHER | LOC: LAB SHORT 14:33 → PLD 14:33 | DX: N87.1 Moderate cervical dysplasia (principal) | CPT/HCPCS: 88305 ==

== ENCOUNTER 2023-07-01 06:44 | Day surgery (SDC) | payer OTHER ==
[~2023-07-01] VITALS: Ht 162.6 cm; Wt 85.0 kg
[2023-07-01] VITALS (12 sets, daily range): BP systolic 89–128; BP diastolic 52–76
--- NOTE | 2023-07-01 10:50 | NUR ---
DR CARRASCO AT BEDSIDE TALKING WITH PT IN [facility] TO LOOSE BOTTOM TEETH AND THE BRADYCARDIA DURING PROCEDURE
--- NOTE | 2023-07-01 11:18 | NUR ---
Patient up to Ambulate independently. Gait steady. Discharge instructions reviewed with patient. Patient verbalizes understanding. Copy given to patient to take home. Discharged via wheelchair to private car for ride home. Patient States Post-Procedure ride home has been arranged. PT DENIES CHEST PAIN BUT IS HAVING LOW ABD/VAGINAL PAIN PAIN MEDS GIVEN
== END 2023-07-01 22:59 | disposition home or self-care (01) ==
LOC: ORSCMMR 06:44 → ORD 08:30 → ORSCMMR 08:30
PROVIDERS: Obstetrics & Gynecology
PROC: 0UDB8ZX Extraction of Endometrium, Via Natural or Artificial Opening Endoscopic, Diagnostic (ICD-10-PCS; principal; 2023-07-01 08:30)
PROC: 0UBC8ZX Excision of Cervix, Via Natural or Artificial Opening Endoscopic, Diagnostic (ICD-10-PCS; principal; 2023-07-01 08:30)
DX: R87.610 Atypical squamous cells of undetermined significance on cytologic smear of cervix (ASC-US) (principal); N84.0 Polyp of corpus uteri; I10 Essential (primary) hypertension; I47.10 Supraventricular tachycardia, unspecified; I25.2 Old myocardial infarction; Z87.891 Personal history of nicotine dependence; E66.9 Obesity, unspecified; Z68.32 Body mass index [BMI] 32.0-32.9, adult; Z79.899 Other long term (current) drug therapy
CPT/HCPCS: 88305; 93005; 93010; A9270; J0171; J0690; J1100; J1885; J2250; J2371; J2405; J2704; J3010; J7120